=== PATIENT | male | born 1935 | race Caucasian/White ===

== ENCOUNTER 2017-11-08 22:38 | Observation (INO) ==
[2017-11-08 22:48] VITALS: BMI 37.3
--- NOTE | 2017-11-09 00:22 | DR.GENAD ---
HPI Time Seen Time Seen by Provider: 11/09/17 00:19 PCP Primary Care Physician: Jewel Complaint/Symptoms Chief Complaint Doctors Comments: Patient presents with complaint with dyspnea at night especially lying in bed. Has to sleep in sitting position. Can only walk a short distance before giving out of breath. He has a C-Pap machine at night. Chief Complaint:: Pt says, "I'm having trouble breathing sometime. Especially at night. I've had some tightness in my chest, but none on the moment. It's not like anyone is sitting on my chest, but it just feels like the air isn't going done into my lungs. Walking short distances leaves me winded. That just started about 4 days." Self Treatment fo Chief Complaint: Flonase Source History Provided: Patient Mode of Arrival Mode of Arrival: Ambulatory Timing Onset of Chief Complaint: 11/05/17 PMH PMH Past Medical History: Yes Past Medical History: Diabetes and Hypertension Past Surgical History: No Family History History of Family Medical Conditions: Yes Family Medical History: Cancer Social History Alcohol Use: None Do you use any recreational Drugs:: No Lives With: Alone Lives Where: Home infectious screening Have you traveled outside the country in the last 6 months?: No Isolation: Standard PE Vital Signs Vitals: Temperature 97.7 F Pulse Rate [Left Radial] 71 Pulse Rate 74 Respiratory Rate 18 Blood Pressure [Left Arm] 168/80 Blood Pressure 191/85 O2 Sat by Pulse Oximetry 97 General Limitations: No Limitations General Appearance: Alert and In No Apparent Distress Head Head Exam: Normal Inspection, Atraumatic and Normocephalic Eyes Eye exam: Normal Appearance, PERRL and EOMI ENT ENT Exam: Normal Exam and Normal Oropharynx External Ear Exam: Normal External Inspection TM/Canal Exam: Bilateral: Normal Nose Exam: Normal Nose Exam Mouth Exam: Normal Inspection Throat Exam: Normal Inspection Neck Neck Exam: Normal Inspection and Full ROM Chest Chest Inspection: Normal Inspection and Symmetric Chest Wall Rise Respiratory Respiratory Exam: Normal Lung Sounds Bilat Respiratory Exam: Bilateral: Clear to Auscultation Cardiovascular Cardiovascular Exam: Regular Rate, Normal Rhythm and Normal Heart Sounds Abdominal Exam Abdominal Exam: Normal Inspection, Normal Bowel Sounds, Soft and Distention Abdominal Tenderness: negative RUQ, RLQ, LUQ, LLQ, Epigastrium and Suprapubic Extremities Extremities Exam: Normal Inspection and Full ROM Back Back Exam: Normal Inspection and Full ROM Neurologic Neurological Exam: Alert, Oriented X3 and CN II-XII Intact Psychiatric Psychiatric Exam: Normal Affect and Normal Mood Skin Skin Exam: Warm, Dry, Intact and Normal Color COURSE Treatment Treatment: Chest CTA, negative Pulmonary Embolus Reevaluation 1st: Improved Consultation Called: 04:41 Consultation Comments: Patient admitted to floor ROR Labs Reviewed Laboratory Results Reviewed?: Yes Result Diagrams: 11/09/17 05:47 Laboratory: D-Dimer 595 ng/mL (0-400) H* 11/09/17 00:45 Sodium 141 mmol/L (136-145) 11/09/17 05:47 Corrected Sodium 142 mmol/L (136-145) 11/09/17 05:47 Potassium 3.9 mmol/L (3.5-5.1) 11/09/17 05:47 Chloride 102 mmol/L (98-107) 11/09/17 05:47 Carbon Dioxide 29.5 mmol/L (21-32) 11/09/17 05:47 BUN 13 mg/dL (7-18) 11/09/17 05:47 Creatinine 1.18 mg/dL (0.70-1.30) 11/09/17 05:47 Est GFR (MDRD) Af Amer > 60 (>60) 11/09/17 05:47 Est GFR (MDRD) Non-Af > 60 (>60) 11/09/17 05:47 Glucose 124 mg/dL (65-99) H 11/09/17 05:47 Calcium 8.1 mg/dL (8.5-10.1) L 11/09/17 05:47 Corrected Calcium TNP 11/09/17 05:47 Total Bilirubin 1.30 mg/dL (0.2-1.0) H 11/09/17 05:47 AST 33 Units/L (15-37) 11/09/17 05:47 ALT 43 Units/L (12-78) 11/09/17 05:47 Alkaline Phosphatase 66 Units/L (46-116) 11/09/17 05:47 Creatine Kinase 230 Units/L (39-308) 11/09/17 05:47 CK-MB (CK-2) 4.0 ng/mL (0-4.0) 11/09/17 05:47 CK/CKMB % Calc 1.7 % (<4) 11/09/17 05:47 Troponin I < 0.02 ng/mL (0-1.5) 11/09/17 05:47 Total Protein 7.6 g/dL (6.4-8.2) 11/09/17 05:47 Albumin 3.5 g/dL (3.4-5.0) 11/09/17 05:47 Globulin 4.1 g/dL (2.5-4.5) 11/09/17 05:47 Albumin/Globulin Ratio 0.9 Ratio (1.1-2.1) L 11/09/17 05:47 Other Results Comments: Elevated D Dimer: Chest CTA:No pulmonary embolus, Vascular plaque noted. Correlate clinically for cardiogenic chest pain. Gallstones are noted. Indeterminate left renal lesion noted. Nonemergent outpatient ultrasound left kidney follow-up recommended. XRAY XRAY Interpreted by: Radiologist XRAY Findings: Chest: No acute chest process Diagnosis Discharge Problem: Chest pain, Chest pain, rule out acute myocardial infarction, Exertional dyspnea
[2017-11-09 01:15] LABS: ALANINE AMINOTRANSFERASE 42 Units/L (12-78); ALBUMIN 3.4 g/dL (3.4-5.0); ALKALINE PHOSPHATASE 65 Units/L (46-116); ASPARTATE AMINO TRANSFERASE 34 Units/L (15-37); BLOOD UREA NITROGEN 13 mg/dL (7-18); CALCIUM 8.3 mg/dL (8.5-10.1); CHLORIDE 103 mmol/L (98-107); COR NA(FOR HYPERGLY) 143 mmol/L (136-145); SODIUM 142 mmol/L (136-145); TOTAL PROTEIN 7.5 g/dL (6.4-8.2); eGFR NON BLACK RACES > 60 (>60)
[2017-11-09 01:55] LABS: CKMB % 1.9 % (<4); CREATINE KINASE 249 Units/L (39-308); TROPONIN I < 0.02 ng/mL (0-1.5)
[2017-11-09 02:03] LABS: CREATINE KINASE MB 4.6 ng/mL (0-4.0)
--- NOTE | 2017-11-09 02:25 | RAD ---
Chest AP portable Indication: Dyspnea Findings: There is no pneumothorax or effusion. There is no consolidation. Monitoring leads obscure m inimal detail. Heart size is normal Impression: No acute chest process Reported By:
--- NOTE | 2017-11-09 03:39 | CT ---
CT angiogram chest after contrast Indication: Difficulty breathing. Borderline elevated D-dimer Technique: Helical images through the chest after IV contrast. Coronal and sagittal reformats provide d. MIP images provided. Findings: Limited images through the upper abdomen shows gallstones in the gallbladder. Vascular plaq ue noted. Right lobe hepatic cyst noted. Left renal hypodensity partially visualized most compatible with a cyst but is indeterminate. Vascular plaque is noted. Review of bone windows shows no destructive osseous lesion. Chest: The aortic arch and great vessels demonstrate scattered calcification. Heart size is prominent with coronary artery calcifications. Shotty mediastinal lymph nodes noted. Pulmonary artery bolus timing is adequate. No pulmonary artery filling defect identified. There is no pneumothorax or effusion. There is no consolidation. Impression: 1. No pulmonary embolus 2. Vascular plaque noted. Correlate clinically for cardiogenic chest pain 3. Gallstones are noted. Indeterminate left renal lesion noted. Nonemergent outpatient ultrasound lef t kidney follow-up recommended. Reported By:
[2017-11-09] MEDS ORDERED: CATAPRES TAB 0.2 MG PO ONE (04:15)
[2017-11-09] MEDS ORDERED: CATAPRES TAB 0.2 MG ONE (04:17)
[2017-11-09 06:37] LABS: CKMB % 1.7 % (<4); CREATINE KINASE 230 Units/L (39-308); TROPONIN I < 0.02 ng/mL (0-1.5)
[2017-11-09] MEDS ORDERED: INSULIN DETEMIR U SUBCUT SCH (06:45)
[2017-11-09] MEDS ORDERED: PATIENT'S HOME MEDICATION (Lisinopril-Hydrochlorothiazide [Lisinopril-Hydrochlorothiazide] PO SCH (07:00)
[2017-11-09] MEDS ORDERED: NS 1000 ML 1,000 ML IV SCH (07:00)
[2017-11-09] MEDS ORDERED: PATIENT'S HOME MEDICATION (Lovastatin [Lovastatin] 40 MG) PO SCH (07:00)
[2017-11-09 07:03] LABS: ALANINE AMINOTRANSFERASE 43 Units/L (12-78); ALBUMIN 3.5 g/dL (3.4-5.0); ALKALINE PHOSPHATASE 66 Units/L (46-116); ASPARTATE AMINO TRANSFERASE 33 Units/L (15-37); BLOOD UREA NITROGEN 13 mg/dL (7-18); CALCIUM 8.1 mg/dL (8.5-10.1); CARBON DIOXIDE 29.5 mmol/L (21-32); CHLORIDE 102 mmol/L (98-107); COR NA(FOR HYPERGLY) 142 mmol/L (136-145); CREATININE 1.18 mg/dL (0.70-1.30); SODIUM 141 mmol/L (136-145); TOTAL PROTEIN 7.6 g/dL (6.4-8.2); eGFR NON BLACK RACES > 60 (>60)
[2017-11-09] MEDS ORDERED: GLUCOPHAGE PO SCH (09:00)
[2017-11-09] MEDS ORDERED: GLIMEPIRIDE 1 MG PO SCH (09:00)
[2017-11-09] MEDS ORDERED: GLUCOPHAGE ONE (09:26)
[2017-11-09] MEDS ORDERED: ZESTRIL TAB 20 MG ONE (09:27)
[2017-11-09] MEDS: ZESTRIL TAB 20 MG PO SCH (09:30)
[2017-11-09] MEDS: FLOMAX PO SCH ×2 (09:31)
[2017-11-09] MEDS: HEMOCYTE-PLUS PO SCH ×2 (09:31→09:32)
[2017-11-09] MEDS: ASPIRIN EC 81 MG PO SCH ×2 (09:31)
[2017-11-09] MEDS: HYDROCHLOROTHIAZIDE 12.5 MG CAP PO SCH (09:32)
--- NOTE | 2017-11-09 12:20 | DR.H&P ---
H&P - History & Physical for Day of: H&P Date: 11/09/17 - Chief Complaint Chief Complaint: SOB, "INCREASED PRESSURE IN CHEST" - History of Present Illness History of Present Illness: 82WM ER ADMISSION AFTER PRESENTING WITH CO INCREASED SOB. PT HAS HXOF COPD, NON SMOKER, USES CPAP AT NIGHT. PT STATES HE FELT LIKE OXYGEN WAS NOT GETTING INTO HIS LUNGS AND HIS HEART WAS WORKING HARDER. PT DENIES ANY HX OF CAD. STATES POSSIBLE STRESS TEST IN 70'S. PT HAS MO , DM, HTN, COPD. PT HAD CTA OF CHEST IN ER NEGATIVE FOR PE. PT ADMITTED FOR SERIAL CE AND TREATMENT OF ACUTE SOB - Past Medical History Past Medical History: Hypertension, Diabetes Additional Medical History: DEJAH - Past Surgical History Surgical History: Other - Family History Family Medical History: Coronary Artery Disease, Hypertension - Social History Does patient currently use any type of tobacco product: No Have you used tobacco products in the last 12 months: No Type of Tobacco Use: Cigarettes How many years tobacco product used: 42 Does any household member use tobacco: No Alcohol Use: None Drug Use: None - Medications Home Medications: No Known Drug Allergies Allergy (Verified 10/16/17 07:56) - Review of Systems Constitutional: No Symptoms Reported Eyes: No Symptoms Reported ENT: No Symptoms Reported Respiratory: Shortness of Breath, SOB with Excertion Cardiovascular: Chest Pain, Edema Gastrointestinal: No Symptoms Reported Genitourinary: No Symptoms Reported Musculoskeletal: No Symptoms Reported Skin: No Symptoms Reported Neurological: No Symptoms Reported - Physical Exam Vital Signs: Temperature 97.8 F Pulse Rate [Left Radial] 73 Pulse Rate 74 Respiratory Rate 22 Blood Pressure [Left Arm] 143/69 Blood Pressure 191/85 O2 Sat by Pulse Oximetry 96 Oriented: Normal Eyes: Normal Ear: Normal Nose: Normal Throat: Normal Respiratory: RLL Diminished, LLL Diminished Cardiovascular: Normal, Edema : Normal Auscultation: Bowel Sounds: Normal Palpation: Normal Tenderness: Normal Skin: Normal Musculoskeletal: Normal Psychiatric: Normal Affect: Anxious Speech Pattern: Clear, Appropriate - Assessment/Plan (1) Chest pain Qualifiers: Chest pain type: chest pain on breathing Qualified Code(s): R07.1 - Chest pain on breathing; R07.81 - Pleurodynia Status: Acute Plan: ADMIT, SERIAL CE AND EKG. CTA CHEST ON ADMISSION. BP AND BP CONTROL. VERIFY HOME MEDS, CONTINUOUS SUPPLEMENTAL O2. ABG, AM FLP, ASPIRIN (2) Exertional dyspnea Status: Acute (3) Diabetes Status: Acute - Allergies Allergies/Adverse Reactions: Allergies Allergy/AdvReac Type Severity Reaction Status Date / Time No Known Drug Allergies Allergy Verified 10/16/17 07:56
[2017-11-09 12:54] LABS: ABG BASE EXCESS 4.7 mmol/L (-2.0-2.0); ABG HCO3 31.2 mmol/L (22-26); FRACTIONATED INSPIRED OXYGEN 28
[2017-11-09 12:54] LABS: BASOPHILS % (AUTO) 0.7 % (0.2-1.0); EOSINOPHILS # (AUTO) 0.2 x10^3/uL (0.0-0.2); EOSINOPHILS % (AUTO) 2.8 % (0.9-2.9); HEMATOCRIT 35.9 % (42.0-54.0); HEMOGLOBIN 11.9 g/dL (13.5-18.0); LYMPHOCYTES # (AUTO) 0.9 X10^3/uL (1.3-2.9); LYMPHOCYTES % (AUTO) 13.2 % (21.0-51.0); MEAN CORPUSCULAR HEMOGLOBIN 26.4 pg (27.0-34.0); MEAN CORPUSCULAR HGB CONC 33.2 g/dL (33.0-35.0); MEAN CORPUSCULAR VOLUME 79.6 fL (80.0-100.0); MEAN PLATELET VOLUME 8.1 fL (7.4-11.0); MONOCYTES # (AUTO) 0.6 x10^3/uL (0.3-0.8); MONOCYTES % (AUTO) 8.4 % (0.0-13.0); NEUTROPHILS # (AUTO) 5.1 x10^3/uL (2.2-4.8); NEUTROPHILS % (AUTO) 74.9 % (42.0-75.0); PLATELET COUNT 152 X10^3/uL (150.0-450.0); RED BLOOD COUNT 4.52 X10^6/uL (4.7-6.0); RED CELL DISTRIBUTION WIDTH 15.9 % (11.6-16.5); WHITE BLOOD COUNT 6.8 X10^3/uL (3.6-10.0)
[2017-11-09 12:55] LABS: ABG ALLEN TEST POS
[2017-11-09 13:34] LABS: CKMB % 1.9 % (<4); CREATINE KINASE 242 Units/L (39-308); TROPONIN I < 0.02 ng/mL (0-1.5)
[2017-11-09 13:42] LABS: CREATINE KINASE MB 4.5 ng/mL (0-4.0)
[2017-11-09] MEDS: NS 1000 ML 1,000 ML IV SCH (16:36)
[2017-11-09 20:02] LABS: CKMB % 1.7 % (<4); CREATINE KINASE 253 Units/L (39-308); TROPONIN I < 0.02 ng/mL (0-1.5)
[2017-11-09 20:08] LABS: CREATINE KINASE MB 4.4 ng/mL (0-4.0)
[2017-11-09] MEDS: LIPITOR TAB 10 MG PO SCH (20:19)
[2017-11-09] MEDS ORDERED: LEVEMIR SC SCH (21:00)
[2017-11-09] MEDS: MORPHINE SULFATE INJ 4 MG IVP PRN (22:11)
[2017-11-10] MEDS: NS 1000 ML 1,000 ML IV SCH ×2 (02:01→18:37)
[2017-11-10] MEDS: MORPHINE SULFATE INJ 4 MG IVP PRN ×3 (02:02→22:28)
[2017-11-10 05:05] LABS: BASOPHILS # (AUTO) 0.1 X10^3/uL (0.0-0.1); BASOPHILS % (AUTO) 0.7 % (0.2-1.0); EOSINOPHILS # (AUTO) 0.3 x10^3/uL (0.0-0.2); EOSINOPHILS % (AUTO) 3.7 % (0.9-2.9); HEMATOCRIT 37.7 % (42.0-54.0); HEMOGLOBIN 12.2 g/dL (13.5-18.0); LYMPHOCYTES # (AUTO) 2.2 X10^3/uL (1.3-2.9); LYMPHOCYTES % (AUTO) 23.3 % (21.0-51.0); MEAN CORPUSCULAR HEMOGLOBIN 26.2 pg (27.0-34.0); MEAN CORPUSCULAR HGB CONC 32.3 g/dL (33.0-35.0); MEAN PLATELET VOLUME 8.5 fL (7.4-11.0); MONOCYTES # (AUTO) 0.9 x10^3/uL (0.3-0.8); MONOCYTES % (AUTO) 9.5 % (0.0-13.0); NEUTROPHILS # (AUTO) 5.8 x10^3/uL (2.2-4.8); NEUTROPHILS % (AUTO) 62.8 % (42.0-75.0); PLATELET COUNT 165 X10^3/uL (150.0-450.0); RED BLOOD COUNT 4.66 X10^6/uL (4.7-6.0); RED CELL DISTRIBUTION WIDTH 15.7 % (11.6-16.5); WHITE BLOOD COUNT 9.2 X10^3/uL (3.6-10.0)
[2017-11-10 05:14] LABS: ALANINE AMINOTRANSFERASE 43 Units/L (12-78); ALBUMIN 3.5 g/dL (3.4-5.0); ALKALINE PHOSPHATASE 68 Units/L (46-116); ASPARTATE AMINO TRANSFERASE 35 Units/L (15-37); BLOOD UREA NITROGEN 13 mg/dL (7-18); CARBON DIOXIDE 32.1 mmol/L (21-32); CHLORIDE 101 mmol/L (98-107); COR NA(FOR HYPERGLY) 141 mmol/L (136-145); CREATININE 1.16 mg/dL (0.70-1.30); SODIUM 140 mmol/L (136-145); TOTAL PROTEIN 7.6 g/dL (6.4-8.2); eGFR NON BLACK RACES > 60 (>60)
[2017-11-10] MEDS: ZOFRAN INJ 4 MG VIAL IVP PRN ×2 (05:46→22:29)
[2017-11-10] MEDS ORDERED: AMARYL TAB 4 MG PO SCH (07:00)
[2017-11-10] MEDS ORDERED: ZESTRIL TAB 20 MG ONE (07:44)
[2017-11-10] MEDS: FLOMAX PO SCH (08:51)
[2017-11-10] MEDS: ZESTRIL TAB 20 MG PO SCH (08:51)
[2017-11-10] MEDS: ASPIRIN EC 81 MG PO SCH (08:51)
[2017-11-10] MEDS: HEMOCYTE-PLUS PO SCH (08:51)
[2017-11-10] MEDS: HYDROCHLOROTHIAZIDE 12.5 MG CAP PO SCH (08:51)
[2017-11-10 09:59] LABS: CKMB % 1.5 % (<4); CREATINE KINASE 234 Units/L (39-308); CREATINE KINASE MB 3.6 ng/mL (0-4.0); TROPONIN I < 0.02 ng/mL (0-1.5)
[2017-11-10 13:48] LABS: CKMB % 1.5 % (<4); CREATINE KINASE 209 Units/L (39-308); CREATINE KINASE MB 3.2 ng/mL (0-4.0); TROPONIN I < 0.02 ng/mL (0-1.5)
[2017-11-10 18:47] LABS: CKMB % 1.4 % (<4); CREATINE KINASE 222 Units/L (39-308); CREATINE KINASE MB 3.2 ng/mL (0-4.0); TROPONIN I < 0.02 ng/mL (0-1.5)
[2017-11-10] MEDS: LIPITOR TAB 10 MG PO SCH (20:31)
[2017-11-10 20:43] VITALS: BP 158/70
--- NOTE | 2017-12-17 01:04 | DR.CARTERD ---
- Discharge Summary for: Discharge Summary for Date of:: 11/10/17 - Admission Date Date of Admission: 11/09/17 - Admission Diagnoses Admission Diagnosis: (1) Chest pain (2) Exertional dyspnea (3) Diabetes - Discharge Date Discharge Date: 11/10/17 - Discharge Diagnoses Discharge Diagnosis: (1) Chest pain (2) Exertional dyspnea (3) Diabetes - Hospital Course Hospital Course: Mr. Cadena presented to the [facility] emergency room with complaints of dyspnea at night especially lying in bed. He reported he had to sleep in sitting position. He could only walk a short distance before giving out of breath. He reported, "I'm having trouble breathing sometimes. Especially at night. I've had some tightness in my chest, but none at the moment. It's not like anyone is sitting on my chest, but it just feels like the air isn't going down into my lungs. Walking short distances leaves me winded. This just started about 4 days." Patient had a history of COPD, he was a non-smoker, and used a CPAP at night. Chest x-ray revealed no acute chest process. EKG showed a sinus rhythm with a heart rate of 71. A chest CTA was performed and revealed: No pulmonary embolus. Vascular plaque noted. Correlate clinically for cardiogenic chest pain. Gallstones were noted. Indeterminate left renal lesion noted. Nonemergent outpatient ultrasound left kidney follow-up recommended. Patient was admitted to the hospital for chest pain R/O AR. 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 Medical HX: HTN, COPD, GERD, DM II, Skin CA, Vasectomy. Medications: NS 1000 MLS IV @ 75 MLS/HR, NS 1000 MLS IV @ 30 MLS/HR, Morphine 4 MG IVP Q4H PRN, Saline Flush 10 MLS IVP TID, Levemir 24 units SC @ HS, OTBS AC&HS, Metformin 500 MG PO BID, Glimerpiride 1MG PO Daily, Lovastatin 40 MG PO Daily, Clonodine 0.2 MG PO once, Lipitor 10 MG PO @ HS, Lisinopril 20 MG PO Daily, Hydrochlorothiazide 12.5 MG PO Daily, Flomax 0.4 MG PO Daily, Hemocyte Plus 1 TAB PO Daily, Aspirin 81 MG PO Daily. On day two, patient refused to stay and requested to leave against medical advice. Cardiac enzymes and EKGs were normal. Patient signed out and left hospital with son in stable condition. - Discharge Medications Discharge Medications: Prescriptions: Ambulatory Orders aspirin 81 mg PO QDAY 10/16/17 coQ10 (ubiquinol) 200 mg PO QDAY 10/16/17 glimepiride 1 mg PO QAM 10/16/17 insulin detemir U-100 [Levemir FlexTouch U-100 Insuln] 30 unit SUBCUT QHS 10/16/17 iron-folic acid-mv, min cmb#15 [Hemocyte-Plus] 1 cap PO QDAY 10/16/17 lisinopril-hydrochlorothiazide 1 tab PO QDAY 10/16/17 lovastatin 40 mg PO QDAY 10/16/17 metformin 500 mg PO BID 10/16/17 tamsulosin 0.4 mg PO QDAY 10/16/17 - Discharge Disposition Discharge Disposition: Patient is to follow up in our office in three days.
== END 2017-11-10 23:10 | disposition left against medical advice (07) ==
LOC: MED/SURG 22:38 → ER 22:38 → MED/SURG 11-09 07:47
PROVIDERS: ADMIT Internal Medicine; ATTEND Internal Medicine
DX: Z79.899 Other long term (current) drug therapy; R07.81 Pleurodynia; J44.9 Chronic obstructive pulmonary disease, unspecified; R94.31 Abnormal electrocardiogram [ECG] [EKG]; I10 Essential (primary) hypertension; R07.1 Chest pain on breathing; R06.02 Shortness of breath; E11.65 Type 2 diabetes mellitus with hyperglycemia
CPT/HCPCS: 36415; 36600; 71010; 71045; 71275; 80053; 82550; 82553; 82803; 83036; 84484; 85025; 85378; 93005; 93010; 93306; 96365; 99218; 99284; A4216; A4222; G0378; J2270; J2405; J7030

== ENCOUNTER 2023-06-05 10:24 | Inpatient (IN) ==
[2023-06-05] MEDS ORDERED: ZOFRAN INJ 4 MG VIAL IVP PRN (12:52)
[2023-06-05] MEDS: VSL#3 PROBIOTIC CAP 112.5 B PO SCH (13:44)
[2023-06-05] MEDS: PROTONIX INJ 40 MG VIAL IVP SCH (13:44)
[2023-06-05] MEDS: NS 1,000 ML IV 1,000 ML IV SCH (13:44)
[2023-06-05] MEDS: ZITHROMAX INJ 500 MG VIAL 500 MG in NS 250 ML IV 250 ML IV SCH (13:44)
[2023-06-05] MEDS: VANCOMYCIN HCL 250 MG CAP PO SCH (13:44)
[2023-06-05 13:53] LABS: BASOPHILS # (AUTO) 0.1 X10^3/uL (0.0-0.1); BASOPHILS % (AUTO) 0.5 % (0.2-1.0); EOSINOPHILS # (AUTO) 0.1 x10^3/uL (0.0-0.2); EOSINOPHILS % (AUTO) 1.1 % (0.9-2.9); HEMATOCRIT 24.4 % (42.0-54.0); HEMOGLOBIN 7.8 g/dL (13.5-18.0); LYMPHOCYTES # (AUTO) 0.8 X10^3/uL (1.3-2.9); LYMPHOCYTES % (AUTO) 7.4 % (21.0-51.0); MEAN CORPUSCULAR HEMOGLOBIN 25.5 pg (27.0-34.0); MEAN CORPUSCULAR HGB CONC 32.1 g/dL (33.0-35.0); MEAN CORPUSCULAR VOLUME 79.7 fL (80.0-100.0); MONOCYTES # (AUTO) 1.7 x10^3/uL (0.3-0.8); MONOCYTES % (AUTO) 15.3 % (0.0-13.0); NEUTROPHILS # (AUTO) 8.6 x10^3/uL (2.2-4.8); NEUTROPHILS % (AUTO) 75.7 % (42.0-75.0); PLATELET COUNT 156 X10^3/uL (150.0-450.0); RED BLOOD COUNT 3.06 X10^6/uL (4.7-6.0); RED CELL DISTRIBUTION WIDTH 17.4 % (11.6-16.5); WHITE BLOOD COUNT 11.4 X10^3/uL (3.6-10.0)
[2023-06-05 14:04] LABS: ALANINE AMINOTRANSFERASE 10 Units/L (12-78); ALBUMIN 1.8 g/dL (3.4-5.0); ALKALINE PHOSPHATASE 57 Units/L (46-116); ASPARTATE AMINO TRANSFERASE 11 Units/L (15-37); BLOOD UREA NITROGEN 64 mg/dL (7-18); CALCIUM 6.4 mg/dL (8.5-10.1); CARBON DIOXIDE 18.1 mmol/L (21-32); CHLORIDE 109 mmol/L (98-107); COR CA(FOR HYPOALB) 8.2 mg/dL (8.5-10.1); CREATININE 3.75 mg/dL (0.70-1.30); GLUCOSE 103 mg/dL (65-99); POTASSIUM 4.2 mmol/L (3.5-5.1); SODIUM 140 mmol/L (136-145); TOTAL PROTEIN 5.3 g/dL (6.4-8.2); eGFR NON BLACK RACES 16 (>60)
[2023-06-05 15:07] VITALS: BMI 33.4
[2023-06-05] MEDS: NS 1,000 ML IV 1,000 ML IV ONE (15:18)
[2023-06-05] MEDS: FLOMAX PO SCH (20:57)
[2023-06-05] MEDS: CRESTOR TAB 10 MG PO SCH (20:57)
[2023-06-05] MEDS ORDERED: PATIENT'S HOME MEDICATION (Rosuvastatin 20 mg tablet) PO SCH (21:00)
--- NOTE | 2023-06-05 21:49 | DR.H&P ---
H&P History & Physical for Day of: H&P Date: 06/05/23 Chief Complaint Chief Complaint: abdominal pain, diarrhea, weakness Allergies Allergies Allergy/AdvReac Type Severity Reaction Status Date / Time No Known Drug Allergies Allergy Verified 10/16/17 07:56 History of Present Illness History of Present Illness: Mr Cadena is a 87y/o male who was directly admitted from Dr Holloway's office due to abdominal pain, diarrhea and weakness. He was seen outpatient and tested positive for C diff and campy. He was started on Ciprofloxacin and Flagyl. He was seen again the following day and labs showed worsening renal function. He received 2L IVF in the office. He continued to feel worse so was admitted for further management. He is complaining of generalized abdominal pain, diarrhea and weakness. He states his symptoms have been present for over a week. He denies any blood in the stool. He reports being on antibiotics for the past month for other reasons. He was not tolerating PO intake. Denies fever or chills. Labs/imaging reviewed: -WBC: 11.4 Hgb 7.4 BUN/Cr: 64/3.75 Plan: Order stat cbc, cmp, ua. Will order CTAP. Start hydration, anti-emetics, PO vancomycin and azithromycin. Add pantoprazole and probiotics. Give 1 L NS now. Resume home medications. Start full liquid diet, advance as tolerated. Replace electrolytes as per protocol. Monitor AM labs/imaging. Past Medical History Past Medical History: COPD, Diabetes, Dyslipidemia, GERD, Hypertension and Sleep Apnea Additional Medical History: DEJAH Past Surgical History Surgical History: Other Family History Family Medical History: Cancer, Coronary Artery Disease and Hypertension Social History Does patient currently use any type of tobacco product: No Type of Tobacco Use: None Does any household member use tobacco: No Alcohol Use: None Drug Use: None Medications Home Medications: Home Medications Medication Instructions Recorded Confirmed Type lisinopril 20 1 tab PO QDAY 10/16/17 06/05/23 History mg-hydrochlorothiazide 12.5 mg tablet aspirin 325 mg tablet,delayed 325 mg PO QDAY 02/14/23 06/05/23 History release pantoprazole 40 mg tablet,delayed 40 mg PO QDAY 02/14/23 06/05/23 History release rosuvastatin 20 mg tablet 20 mg PO QPM 02/14/23 06/05/23 History tamsulosin 0.4 mg capsule 0.4 mg PO QPM 05/31/23 06/05/23 History Lactobacillus rhamnosus GG 10 1 cap PO DAILY 06/05/23 06/05/23 History billion cell-inulin 200 mg capsule ([facility]) Labs 06/05/23 13:36 06/05/23 13:36 Labs: Laboratory WBC 11.4 X10^3/uL (3.6-10.0) H 06/05/23 13:36 RBC 3.06 X10^6/uL (4.7-6.0) L 06/05/23 13:36 Hgb 7.8 g/dL (13.5-18.0) L 06/05/23 13:36 Hct 24.4 % (42.0-54.0) L 06/05/23 13:36 MCV 79.7 fL (80.0-100.0) L 06/05/23 13:36 MCH 25.5 pg (27.0-34.0) L 06/05/23 13:36 MCHC 32.1 g/dL (33.0-35.0) L 06/05/23 13:36 RDW 17.4 % (11.6-16.5) H 06/05/23 13:36 Plt Count 156 X10^3/uL (150.0-450.0) 06/05/23 13:36 MPV 8.0 fL (7.4-11.0) 06/05/23 13:36 Neut % (Auto) 75.7 % (42.0-75.0) H 06/05/23 13:36 Lymph % (Auto) 7.4 % (21.0-51.0) L 06/05/23 13:36 [place] % (Auto) 15.3 % (0.0-13.0) H 06/05/23 13:36 Eos % (Auto) 1.1 % (0.9-2.9) 06/05/23 13:36 Baso % (Auto) 0.5 % (0.2-1.0) 06/05/23 13:36 Neut # (Auto) 8.6 x10^3/uL (2.2-4.8) H 06/05/23 13:36 Lymph # (Auto) 0.8 X10^3/uL (1.3-2.9) L 06/05/23 13:36 [place] # (Auto) 1.7 x10^3/uL (0.3-0.8) H 06/05/23 13:36 Eos # (Auto) 0.1 x10^3/uL (0.0-0.2) 06/05/23 13:36 Baso # (Auto) 0.1 X10^3/uL (0.0-0.1) 06/05/23 13:36 Absolute Nucleated RBC 0.0 /100WBC 06/05/23 13:36 Sodium 140 mmol/L (136-145) 06/05/23 13:36 Corrected Sodium TNP 06/05/23 13:36 Potassium 4.2 mmol/L (3.5-5.1) 06/05/23 13:36 Chloride 109 mmol/L (98-107) H 06/05/23 13:36 Carbon Dioxide 18.1 mmol/L (21-32) L 06/05/23 13:36 BUN 64 mg/dL (7-18) H 06/05/23 13:36 Creatinine 3.75 mg/dL (0.70-1.30) H 06/05/23 13:36 Est GFR (MDRD) Af Amer 20 (>60) L 06/05/23 13:36 Est GFR (MDRD) Non-Af 16 (>60) L 06/05/23 13:36 Glucose 103 mg/dL (65-99) H 06/05/23 13:36 Calcium 6.4 mg/dL (8.5-10.1) L 06/05/23 13:36 Corrected Calcium 8.2 mg/dL (8.5-10.1) L 06/05/23 13:36 Total Bilirubin 0.40 mg/dL (0.2-1.0) 06/05/23 13:36 AST 11 Units/L (15-37) L 06/05/23 13:36 ALT 10 Units/L (12-78) L 06/05/23 13:36 Alkaline Phosphatase 57 Units/L (46-116) 06/05/23 13:36 Total Protein 5.3 g/dL (6.4-8.2) L 06/05/23 13:36 Albumin 1.8 g/dL (3.4-5.0) L 06/05/23 13:36 Globulin 3.5 g/dL (2.5-4.5) 06/05/23 13:36 Albumin/Globulin Ratio 0.5 Ratio (1.1-2.1) L 06/05/23 13:36 Review of Systems Constitutional: Weakness and Malaise Eyes: No Symptoms Reported Respiratory: No Symptoms Reported Cardiovascular: No Symptoms Reported Gastrointestinal: Abdominal Pain and Diarrhea Genitourinary: No Symptoms Reported Musculoskeletal: No Symptoms Reported Skin: No Symptoms Reported Neurological: No Symptoms Reported Physical Exam Vital Signs: Vital Signs Temperature 98.4 F Temperature 97.1 F Pulse Rate [Left Brachial] 90 Pulse Rate [Left Brachial] 83 Respiratory Rate 19 Respiratory Rate 18 Blood Pressure [Left Arm] 171/77 Blood Pressure [Left Arm] 151/66 O2 Sat by Pulse Oximetry 97 O2 Sat by Pulse Oximetry 98 Oriented: Normal Eyes: Normal Nose: Normal Throat: Normal Respiratory: Clear Throughout Cardiovascular: Normal Auscultation: Bowel Sounds: Normal Tenderness: Diffuse and Mild Skin: Decreased [place] Musculoskeletal: Normal Psychiatric: Normal Mood Description: Calm Affect: Normal Speech Pattern: Clear and Appropriate Assessment/Plan (1) C. difficile colitis: Status: Acute (2) Campylobacter diarrhea: Status: Acute (3) JAKE (acute kidney injury): Status: Acute (4) Acute dehydration: Status: Acute (5) Generalized weakness: Status: Acute (6) Anemia: Qualifiers: Anemia type: unspecified type Qualified Code(s): D64.9 - Anemia, unspecified Status: Acute Review H&P Reviewed: Yes Patient was examined?: Yes
[2023-06-05 23:08] LABS: BILIRUBIN,URINE NEGATIVE (NEGATIVE); BLOOD/HEMOGLOBIN,URINE 1+ (NEGATIVE); GLUCOSE, URINE NEGATIVE (NEGATIVE); KETONES,URINE NEGATIVE (NEGATIVE); LEUKOCYTE ESTERASE ,URINE 1+ (NEGATIVE); NITRITES,URINE POSITIVE (NEGATIVE); PROTEIN,URINE 3+ (NEGATIVE); UROBILINOGEN,URINE NORMAL (NORMAL)
[2023-06-05 23:22] LABS: APPEARANCE,URINE SLIGHTLY HAZY (CLEAR); BACTERIA,URINE 2+ /HPF (NEGATIVE); COLOR,URINE YELLOW (YELLOW); GRANULAR CASTS,URINE FEW /LPF (NEGATIVE); SQUAMOUS EPITHELIAL CELL,UR FEW /HPF (NEGATIVE)
[2023-06-06 06:15] LABS: BASOPHILS % (AUTO) 0.3 % (0.2-1.0); EOSINOPHILS # (AUTO) 0.2 x10^3/uL (0.0-0.2); EOSINOPHILS % (AUTO) 1.8 % (0.9-2.9); HEMATOCRIT 25.4 % (42.0-54.0); LYMPHOCYTES # (AUTO) 0.9 X10^3/uL (1.3-2.9); LYMPHOCYTES % (AUTO) 7.2 % (21.0-51.0); MEAN CORPUSCULAR HEMOGLOBIN 25.3 pg (27.0-34.0); MEAN CORPUSCULAR HGB CONC 31.6 g/dL (33.0-35.0); MEAN CORPUSCULAR VOLUME 80.3 fL (80.0-100.0); MEAN PLATELET VOLUME 8.2 fL (7.4-11.0); MONOCYTES # (AUTO) 1.8 x10^3/uL (0.3-0.8); MONOCYTES % (AUTO) 13.9 % (0.0-13.0); NEUTROPHILS # (AUTO) 9.9 x10^3/uL (2.2-4.8); NEUTROPHILS % (AUTO) 76.8 % (42.0-75.0); PLATELET COUNT 184 X10^3/uL (150.0-450.0); RED BLOOD COUNT 3.17 X10^6/uL (4.7-6.0); RED CELL DISTRIBUTION WIDTH 17.5 % (11.6-16.5); WHITE BLOOD COUNT 12.9 X10^3/uL (3.6-10.0)
[2023-06-06 06:26] LABS: ALBUMIN 1.8 g/dL (3.4-5.0); CALCIUM 6.4 mg/dL (8.5-10.1); CARBON DIOXIDE 18.1 mmol/L (21-32); COR CA(FOR HYPOALB) 8.2 mg/dL (8.5-10.1); CREATININE 3.85 mg/dL (0.70-1.30); MAGNESIUM 1.1 mg/dL (2.0-2.9); POTASSIUM 4.6 mmol/L (3.5-5.1); TOTAL PROTEIN 5.5 g/dL (6.4-8.2)
[2023-06-06] MEDS ORDERED: NS 1,000 ML IV 1,000 ML IV SCH (09:00)
[2023-06-06] MEDS: PROTONIX TAB 40 MG PO SCH (09:11)
[2023-06-06] MEDS: ECOTRIN TAB 325 MG PO SCH (09:12)
[2023-06-06] MEDS: NS 1,000 ML IV 1,000 ML with MAGNESIUM SULFATE 50% INJ VIAL 2 G IV SCH (09:39)
[2023-06-06] MEDS: ZITHROMAX TAB 250 MG PO SCH (10:10)
[2023-06-06] MEDS: ROCEPHIN VIAL 1 GRAM 1 G in NS 100 ML IV 100 ML IV SCH (10:14)
[2023-06-06] MEDS ORDERED: NovoLIN R (or HumuLIN R) SUBCUT PRN (10:37)
--- NOTE | 2023-06-06 13:34 | CT ---
EXAM:CT abdomen pelvis with IV contrastHISTORY:ABD PAIN, C DIFF; DM, HTN -COMPARISON:CT 02/14/2023.TECHNIQUE:Multiple axial images of the abdomen and pelvis were obtained from the lung bases to the pubic symphysis without the administration of IV contrast. Dose reduction techniques including Automated Exposure Control (AEC) and adjustment of mA and kV were utilized.FINDINGS:The visualized portions of the lung bases mild pleural effusions have developed, [id number]. Likely mild associated atelectasis is seen in the right lung base but this area is not fully included. Consider evaluation with CT of the chest. There is a small pericardial effusion that is slightly larger than on prior study. Heart is normal in size.In the superior aspect of the liver there is a well-circumscribed low-density lesion measuring 2.4 cm, unchanged from prior study. It is probably a cyst. Spleen appears normal.Gallbladder is filled with stones. It is poorly distended but no suggestion of wall thickening or pericholecystic fluid is seen. No biliary ductal dilation.No pancreatic abnormality is seen.The adrenal glands appear normal.Isodense exophytic lesion in the mid left kidney measures 3.6 cm in greatest axial dimension, similar to prior study. It is probably a cyst. A parapelvic cyst in the mid right kidney is similar to prior study measuring 2.1 cm. Vascular calcifications are seen in the left hilum. Ureters and bladder appear normal.There appears to be wall thickening in portions of the ascending, transverse, descending, and sigmoid colon. Adjacent hazy inflammation is seen that is new since prior study. Findings suggest possible infectious colitis such as C difficile. There are few diverticula in the descending colon and sigmoid colon but diverticulitis is not thought to be likely. Small bowel dilation is seen. Normal appendix is seen.There is mild prostatomegaly. Prostate gland measures 5.4 x 5.7 x 5.0 cm, similar to prior study. There are bilateral inguinal hernias containing fat. Similar to prior study.Abdominal aorta is normal in size.No suspicious lymphadenopathy.Trace free fluid is seen in the pericolic gutters. No free intraperitoneal air is seen.No acute bony abnormality is seen. Disc bulge is seen at L4-5, similar to prior study.IMPRESSION:Probable changes of infectious colitis are present, new since prior study.Persistent prostatomegaly.Probable benign hepatic and renal cysts are similar to prior study.New small pleural effusions are seen with slight increase in size of small pericardial effusion. Probable atelectasis is seen in the right lung base but is only partially included. Suggest further evaluation with chest CT to ensure no pneumonia or mass.THIS IS AN ELECTRONICALLY VERIFIED FINAL REPORT06/06/2023 1:31 PM - Electronically signed by Demetrio Rubin MD
--- NOTE | 2023-06-06 19:17 | PCM.PROG ---
Progress Note Progress Note for Day of Date of Exam: 06/06/23 Subjective Subjective: Pt is a 87 y/o male admitted for C diff and campy gastroenteritis, acute cystitis, and acute renal failure. He is currently receiving IV antibiotics: Ciprofloxacin and Flagyl. This morning he is sitting up in bed. No acute events overnight. Labs/imaging reviewed: -WBC 12.9, hemoglobin 8, platelets 184, sodium 139, potassium 4.6, creatinine 3.85, glucose 142 -Urine/blood cultures pending Plan: CT abdomen and pelvis has been ordered, results pending. Follow-up results. Continue IV fluids, anti-emetics, PO vancomycin and azithromycin, pantoprazole and probiotics. Will add Rocephin for gram-negative coverage. Home medications have been restarted. Patient is on full liquid diet, advance as tolerated. Replace electrolytes as per protocol. Monitor AM labs/imaging. Past Medical Family Social History Allergies: Allergies No Known Drug Allergies Allergy (Verified 10/16/17 07:56) Review of Systems ROS changes noted: see HPI Vital Signs and I&O's Vital Signs: Vital Signs Temperature 97.0 F Temperature 98.0 F Pulse Rate [Left Brachial] 88 Pulse Rate [Left Brachial] 90 Respiratory Rate 18 Respiratory Rate 18 Blood Pressure [Left Arm] 146/65 Blood Pressure [Left Arm] 142/62 O2 Sat by Pulse Oximetry 94 O2 Sat by Pulse Oximetry 99 Intake and Output: Intake & Output 06/03/23 06/04/23 06/05/23 06/06/23 23:59 23:59 23:59 23:59 Intake Total 2011 3245 / 3245 Output Total 320 / 320 420 / 420 Balance 1692 / 1692 2825 / 2825 Physical Exam Oriented: Normal Eyes: Normal Nose: Normal Throat: Normal Respiratory: Normal Cardiovascular: Normal Auscultation: Bowel Sounds: Normal Tenderness: Diffuse and Mild Skin: Decreased Turgur Musculoskeletal: Normal Psychiatric: Normal Mood Description: Calm Affect: Normal Speech Pattern: Clear and Appropriate Laboratory and Diagnostics 06/06/23 05:35 06/06/23 05:35 Labs: Laboratory WBC 12.9 X10^3/uL (3.6-10.0) H 06/06/23 05:35 RBC 3.17 X10^6/uL (4.7-6.0) L 06/06/23 05:35 Hgb 8.0 g/dL (13.5-18.0) L 06/06/23 05:35 Hct 25.4 % (42.0-54.0) L 06/06/23 05:35 MCV 80.3 fL (80.0-100.0) 06/06/23 05:35 MCH 25.3 pg (27.0-34.0) L 06/06/23 05:35 MCHC 31.6 g/dL (33.0-35.0) L 06/06/23 05:35 RDW 17.5 % (11.6-16.5) H 06/06/23 05:35 Plt Count 184 X10^3/uL (150.0-450.0) 06/06/23 05:35 MPV 8.2 fL (7.4-11.0) 06/06/23 05:35 Neut % (Auto) 76.8 % (42.0-75.0) H 06/06/23 05:35 Lymph % (Auto) 7.2 % (21.0-51.0) L 06/06/23 05:35 [place] % (Auto) 13.9 % (0.0-13.0) H 06/06/23 05:35 Eos % (Auto) 1.8 % (0.9-2.9) 06/06/23 05:35 Baso % (Auto) 0.3 % (0.2-1.0) 06/06/23 05:35 Neut # (Auto) 9.9 x10^3/uL (2.2-4.8) H 06/06/23 05:35 Lymph # (Auto) 0.9 X10^3/uL (1.3-2.9) L 06/06/23 05:35 [place] # (Auto) 1.8 x10^3/uL (0.3-0.8) H 06/06/23 05:35 Eos # (Auto) 0.2 x10^3/uL (0.0-0.2) 06/06/23 05:35 Baso # (Auto) 0.0 X10^3/uL (0.0-0.1) 06/06/23 05:35 Absolute Nucleated RBC 0.0 /100WBC 06/06/23 05:35 Sodium 139 mmol/L (136-145) 06/06/23 05:35 Corrected Sodium 140 mmol/L (136-145) 06/06/23 05:35 Potassium 4.6 mmol/L (3.5-5.1) 06/06/23 05:35 Chloride 107 mmol/L (98-107) 06/06/23 05:35 Carbon Dioxide 18.1 mmol/L (21-32) L 06/06/23 05:35 BUN 58 mg/dL (7-18) H 06/06/23 05:35 Creatinine 3.85 mg/dL (0.70-1.30) H 06/06/23 05:35 Est GFR (MDRD) Af Amer 19 (>60) L 06/06/23 05:35 Est GFR (MDRD) Non-Af 16 (>60) L 06/06/23 05:35 Glucose 142 mg/dL (65-99) H 06/06/23 05:35 POC Glucose (mg/dL) 137 mg/dL (65-99) H 06/06/23 16:09 Calcium 6.4 mg/dL (8.5-10.1) L 06/06/23 05:35 Corrected Calcium 8.2 mg/dL (8.5-10.1) L 06/06/23 05:35 Magnesium 1.1 mg/dL (2.0-2.9) L 06/06/23 05:35 Total Bilirubin 0.30 mg/dL (0.2-1.0) 06/06/23 05:35 AST 14 Units/L (15-37) L 06/06/23 05:35 ALT 11 Units/L (12-78) L 06/06/23 05:35 Alkaline Phosphatase 63 Units/L (46-116) 06/06/23 05:35 Total Protein 5.5 g/dL (6.4-8.2) L 06/06/23 05:35 Albumin 1.8 g/dL (3.4-5.0) L 06/06/23 05:35 Globulin 3.7 g/dL (2.5-4.5) 06/06/23 05:35 Albumin/Globulin Ratio 0.5 Ratio (1.1-2.1) L 06/06/23 05:35 Specimen Type Clean catch urine 06/05/23 22:40 Urine Color Yellow (YELLOW) 06/05/23 22:40 Urine Appearance Slightly hazy (CLEAR) 06/05/23 22:40 Urine pH 5.0 (5.0 - 8.0) 06/05/23 22:40 Ur Specific [place] 1.020 (1.000-1.030) 06/05/23 22:40 Urine Protein 3+ (NEGATIVE) 06/05/23 22:40 Urine Glucose (UA) Negative (NEGATIVE) 06/05/23 22:40 Urine Ketones Negative (NEGATIVE) 06/05/23 22:40 Urine Blood 1+ (NEGATIVE) 06/05/23 22:40 Urine Nitrite Positive (NEGATIVE) 06/05/23 22:40 Urine Bilirubin Negative (NEGATIVE) 06/05/23 22:40 Urine Urobilinogen Normal (NORMAL) 06/05/23 22:40 Ur Leukocyte Esterase 1+ (NEGATIVE) 06/05/23 22:40 Urine RBC 3-5 /HPF (0-3) A 06/05/23 22:40 Urine WBC Tntc /HPF (0-5) A 06/05/23 22:40 Ur Squamous Epith Cells Few /HPF (NEGATIVE) 06/05/23 22:40 Urine Bacteria 2+ /HPF (NEGATIVE) 06/05/23 22:40 Granular Casts Few /LPF (NEGATIVE) 06/05/23 22:40 Urine Mucus Few /HPF (NEGATIVE) 06/05/23 22:40 Ur Culture Indicated? Yes/culture set up 06/05/23 22:40 Plan (1) C. difficile colitis: Status: Acute (2) Campylobacter diarrhea: Status: Acute (3) JAKE (acute kidney injury): Status: Acute (4) Acute dehydration: Status: Acute (5) Generalized weakness: Status: Acute (6) Anemia: Status: Acute Qualifiers: Anemia type: unspecified type Qualified Code(s): D64.9 - Anemia, unspecified
[2023-06-06] MEDS: SNACK - Diabetic Appropriate PO SCH (21:11)
[2023-06-07 06:34] LABS: BASOPHILS # (AUTO) 0.1 X10^3/uL (0.0-0.1); BASOPHILS % (AUTO) 0.5 % (0.2-1.0); EOSINOPHILS # (AUTO) 0.4 x10^3/uL (0.0-0.2); HEMOGLOBIN 7.6 g/dL (13.5-18.0); MEAN PLATELET VOLUME 8.2 fL (7.4-11.0); MONOCYTES # (AUTO) 1.7 x10^3/uL (0.3-0.8); NEUTROPHILS # (AUTO) 7.5 x10^3/uL (2.2-4.8)
[2023-06-07 06:42] LABS: EOSINOPHILS % (AUTO) 3.8 % (0.9-2.9); HEMATOCRIT 23.6 % (42.0-54.0); LYMPHOCYTES # (AUTO) 1.1 X10^3/uL (1.3-2.9); LYMPHOCYTES % (AUTO) 10.2 % (21.0-51.0); MEAN CORPUSCULAR HEMOGLOBIN 25.9 pg (27.0-34.0); MEAN CORPUSCULAR HGB CONC 32.3 g/dL (33.0-35.0); MEAN CORPUSCULAR VOLUME 80.3 fL (80.0-100.0); NEUTROPHILS % (AUTO) 69.5 % (42.0-75.0); PLATELET COUNT 177 X10^3/uL (150.0-450.0); RED BLOOD COUNT 2.94 X10^6/uL (4.7-6.0); RED CELL DISTRIBUTION WIDTH 17.5 % (11.6-16.5); WHITE BLOOD COUNT 10.8 X10^3/uL (3.6-10.0)
[2023-06-07 06:51] LABS: ALBUMIN 1.6 g/dL (3.4-5.0); CALCIUM 6.6 mg/dL (8.5-10.1); CARBON DIOXIDE 15.8 mmol/L (21-32); COR CA(FOR HYPOALB) 8.5 mg/dL (8.5-10.1); CREATININE 4.1 mg/dL (0.70-1.30); MAGNESIUM 1.9 mg/dL (2.0-2.9); POTASSIUM 4.6 mmol/L (3.5-5.1); TOTAL PROTEIN 5.1 g/dL (6.4-8.2)
[2023-06-07] MEDS ORDERED: CONSULT PHARMACY - POTASSIUM & MAGNESIUM XX SCH (08:00)
[2023-06-07] MEDS: MAG-OX TAB PO SCH (08:46)
[2023-06-07] MEDS: K-DUR TAB 20 MEQ PO SCH (08:48)
[2023-06-07] MEDS: NS 1,000 ML IV 1,000 ML with MAGNESIUM SULFATE 50% INJ VIAL 1 G IV SCH (09:52)
[2023-06-07 10:33] LABS: RETICULOCYTE % 0.93 % (0.8-2.2)
[2023-06-07 12:27] LABS: ABG BASE EXCESS -11.9 mmol/L (-2.0-2.0); ABG HCO3 14.7 mmol/L (22-26)
--- NOTE | 2023-06-07 13:16 | RAD ---
EXAM: CHEST HISTORY: sob; COMPARISON: None. TECHNIQUE: Frontal view of the chest was submitted for interpretation. FINDINGS: The cardiomediastinal silhouette is within normal limits. Lungs show no focal consolidation, pneumot horax, or pleural fluid. IMPRESSION: No acute cardiopulmonary process. THIS IS AN ELECTRONICALLY VERIFIED FINAL REPORT 06/07/2023 1:13 PM - Electronically signed by Emmanuel Grijalva MD
[2023-06-07 13:50] LABS: BILIRUBIN,URINE NEGATIVE (NEGATIVE); BLOOD/HEMOGLOBIN,URINE 3+ (NEGATIVE); GLUCOSE, URINE NEGATIVE (NEGATIVE); KETONES,URINE NEGATIVE (NEGATIVE); LEUKOCYTE ESTERASE ,URINE 3+ (NEGATIVE); NITRITES,URINE NEGATIVE (NEGATIVE); PROTEIN,URINE 3+ (NEGATIVE); UROBILINOGEN,URINE NORMAL (NORMAL)
[2023-06-07 13:54] LABS: APPEARANCE,URINE HAZY (CLEAR); COLOR,URINE PALE YELLOW (YELLOW)
[2023-06-07 14:00] LABS: BACTERIA,URINE 1+ /HPF (NEGATIVE); SQUAMOUS EPITHELIAL CELL,UR RARE /HPF (NEGATIVE)
[2023-06-07] MEDS ORDERED: SOLU-Medrol 40 MG VIAL ONE (14:44)
[2023-06-07] MEDS: SOLU-Medrol 40 MG VIAL IVP ONE (15:29)
[2023-06-07] MEDS: NS 1,000 ML IV 1,000 ML IV SCH (20:12)
[2023-06-07] MEDS: CONSULT PHARMACY - POTASSIUM & MAGNESIUM XX SCH (20:13)
[2023-06-08 05:42] LABS: BASOPHILS % (AUTO) 0.3 % (0.2-1.0); HEMATOCRIT 26.4 % (42.0-54.0); HEMOGLOBIN 8.6 g/dL (13.5-18.0); LYMPHOCYTES # (AUTO) 0.4 X10^3/uL (1.3-2.9); LYMPHOCYTES % (AUTO) 4.1 % (21.0-51.0); MEAN CORPUSCULAR HEMOGLOBIN 25.8 pg (27.0-34.0); MEAN CORPUSCULAR HGB CONC 32.4 g/dL (33.0-35.0); MEAN CORPUSCULAR VOLUME 79.5 fL (80.0-100.0); MONOCYTES # (AUTO) 0.2 x10^3/uL (0.3-0.8); MONOCYTES % (AUTO) 2.1 % (0.0-13.0); NEUTROPHILS # (AUTO) 10.2 x10^3/uL (2.2-4.8); NEUTROPHILS % (AUTO) 93.5 % (42.0-75.0); PLATELET COUNT 214 X10^3/uL (150.0-450.0); RED BLOOD COUNT 3.32 X10^6/uL (4.7-6.0); RED CELL DISTRIBUTION WIDTH 17.1 % (11.6-16.5); WHITE BLOOD COUNT 10.9 X10^3/uL (3.6-10.0)
[2023-06-08 05:46] LABS: ALBUMIN 1.7 g/dL (3.4-5.0); CALCIUM 7.2 mg/dL (8.5-10.1); CARBON DIOXIDE 16.7 mmol/L (21-32); CREATININE 4.27 mg/dL (0.70-1.30); MAGNESIUM 2.6 mg/dL (2.0-2.9); TOTAL PROTEIN 5.6 g/dL (6.4-8.2)
[2023-06-08 05:52] LABS: POTASSIUM 5.4 mmol/L (3.5-5.1)
[2023-06-08 06:01] LABS: BAND NEUTROPHILS % 5 % (0-10)
[2023-06-08 06:02] LABS: ANISOCYTOSIS SLIGHT; HYPOCHROMASIA SLIGHT; METAMYELOCYTES % 1; PLATELET MORPHOLOGY COMMENT NORMAL (NORMAL); SMUDGE CELLS SLIGHT
[2023-06-08] MEDS: HEMOCYTE-PLUS PO SCH (11:48)
[2023-06-08] MEDS: LASIX IVP ONE (12:28)
[2023-06-08] MEDS: NS 1,000 ML IV 1,000 ML IV SCH (12:28)
[2023-06-09 06:27] LABS: BASOPHILS % (AUTO) 0.3 % (0.2-1.0); EOSINOPHILS # (AUTO) 0.1 x10^3/uL (0.0-0.2); EOSINOPHILS % (AUTO) 0.7 % (0.9-2.9); HEMATOCRIT 26.1 % (42.0-54.0); HEMOGLOBIN 8.1 g/dL (13.5-18.0); LYMPHOCYTES # (AUTO) 1.2 X10^3/uL (1.3-2.9); LYMPHOCYTES % (AUTO) 7.8 % (21.0-51.0); MEAN CORPUSCULAR HEMOGLOBIN 24.8 pg (27.0-34.0); MEAN CORPUSCULAR HGB CONC 31.1 g/dL (33.0-35.0); MEAN CORPUSCULAR VOLUME 79.6 fL (80.0-100.0); MONOCYTES # (AUTO) 1.4 x10^3/uL (0.3-0.8); MONOCYTES % (AUTO) 8.7 % (0.0-13.0); NEUTROPHILS # (AUTO) 13.1 x10^3/uL (2.2-4.8); NEUTROPHILS % (AUTO) 82.5 % (42.0-75.0); PLATELET COUNT 244 X10^3/uL (150.0-450.0); RED BLOOD COUNT 3.27 X10^6/uL (4.7-6.0); RED CELL DISTRIBUTION WIDTH 17.4 % (11.6-16.5); WHITE BLOOD COUNT 15.9 X10^3/uL (3.6-10.0)
[2023-06-09 06:32] LABS: ALBUMIN 1.6 g/dL (3.4-5.0); CALCIUM 7.5 mg/dL (8.5-10.1); CARBON DIOXIDE 19.6 mmol/L (21-32); COR CA(FOR HYPOALB) 9.4 mg/dL (8.5-10.1); CREATININE 4.5 mg/dL (0.70-1.30); POTASSIUM 5.4 mmol/L (3.5-5.1); TOTAL PROTEIN 5.3 g/dL (6.4-8.2)
--- NOTE | 2023-06-09 07:00 | RAD ---
EXAM:Portable chestHISTORY:Shortness of breath, dehydrationCOMPARISON:06/07/2023FINDINGS: slight haziness in the right lung base slightly more prominent than on the prior examination. Early infiltrate may be present. Continued follow-up of this area is recommended. Remainder of the lung black are clear. No definite pleural effusions are identified. Bony thorax is unremarkable.IMPRESSION:Possible early right basilar infiltrate. Follow-up of this area recommendedHyperinflation suggestive of COPD in the appropriate clinical settingTHIS IS AN ELECTRONICALLY VERIFIED FINAL REPORT06/09/2023 6:56 AM - Electronically signed by Zi Main MD
--- NOTE | 2023-06-09 10:15 | PCM.PROG ---
Progress Note Progress Note for Day of Date of Exam: 06/09/23 Subjective Subjective: Patient seen at bedside, no acute events overnight. He states he is feeling better. His diarrhea has slowed down, had 2 episodes yesterday. He denies N/V or abdominal pain. He has been tolerating PO intake. He is currently admitted for C diff and campy gastroenteritis, acute cystitis, and acute renal failure. CXR yesterday showed right basilar infiltrate. He is currently on room air. He is currently receiving PO vancomycin, Azithromycin and Rocephin. He was given IV lasix one dose yesterday. It did help with his UOP, renal function continues to decline. Patient does have significant LE edema and feels short of breath when laying flat. Labs/imaging reviewed: -WBC 15.9, hemoglobin 8.1, platelets 244, sodium 139, potassium 5.4, creatinine 4.50 - Blood Cx: no growth -Urine Cx: ESBL E.coli -CXR 06/09/23: Possible early right basilar infiltrate. Hyperinflation suggestive of COPD in the appropriate clinical setting -CTAP reviewed Plan: Will stop rocephin, start Invanz for ESBL UTI. Stop IVF, start lasix 40 mg IV daily. Monitor I&Os. Order BNP and urine lytes. Will repeat BMP this evening to monitor renal function. Continue current diet. Continue pantoprazole and probiotics. Continue home medications. Replace electrolytes as per protocol. Monitor AM labs/imaging. Past Medical Family Social History Allergies: Allergies No Known Drug Allergies Allergy (Verified 10/16/17 07:56) Vital Signs and I&O's Vital Signs: Vital Signs Temperature 97.9 F Temperature 97.8 F Pulse Rate [Left Brachial] 80 Pulse Rate [Left Brachial] 83 Respiratory Rate 18 Respiratory Rate 20 Blood Pressure [Right Arm] 154/67 Blood Pressure [Right Arm] 143/65 O2 Sat by Pulse Oximetry 94 O2 Sat by Pulse Oximetry 96 Intake and Output: Intake & Output 06/06/23 06/07/23 06/08/23 06/09/23 23:59 23:59 23:59 23:59 Intake Total 4172 / 4172 3577 / 3577 3442 / 3442 669 / 669 Output Total 420 / 420 1100 / 1100 1500 / 1500 350 / 350 Balance 3752 / 3752 2477 / 2477 1942 / 1942 319 / 319 Physical Exam Oriented: Normal Eyes: Normal Nose: Normal Throat: Normal Respiratory: Generalized, Diminished and Rales Cardiovascular: Normal and Edema Auscultation: Bowel Sounds: Normal Palpation: Normal Tenderness: Normal Skin: Decreased Turgur Musculoskeletal: Normal Psychiatric: Normal Mood Description: Calm Affect: Normal Speech Pattern: Clear and Appropriate Laboratory and Diagnostics 06/09/23 05:32 06/09/23 05:32 Labs: 06/05/23 22:40 Urine,Clean Catch Urine Culture - Final Escherichia Coli Esbl 06/06/23 09:48 Blood Blood Culture - Preliminary 06/06/23 09:35 Blood Blood Culture - Preliminary Laboratory WBC 15.9 X10^3/uL (3.6-10.0) H 06/09/23 05:32 RBC 3.27 X10^6/uL (4.7-6.0) L 06/09/23 05:32 Hgb 8.1 g/dL (13.5-18.0) L 06/09/23 05:32 Hct 26.1 % (42.0-54.0) L 06/09/23 05:32 MCV 79.6 fL (80.0-100.0) L 06/09/23 05:32 MCH 24.8 pg (27.0-34.0) L 06/09/23 05:32 MCHC 31.1 g/dL (33.0-35.0) L 06/09/23 05:32 RDW 17.4 % (11.6-16.5) H 06/09/23 05:32 Plt Count 244 X10^3/uL (150.0-450.0) 06/09/23 05:32 Plt Count Comment Adequate (ADEQUATE) 06/08/23 05:08 MPV 8.0 fL (7.4-11.0) 06/09/23 05:32 Neut % (Auto) 82.5 % (42.0-75.0) H 06/09/23 05:32 Lymph % (Auto) 7.8 % (21.0-51.0) L 06/09/23 05:32 [place] % (Auto) 8.7 % (0.0-13.0) 06/09/23 05:32 Eos % (Auto) 0.7 % (0.9-2.9) L 06/09/23 05:32 Baso % (Auto) 0.3 % (0.2-1.0) 06/09/23 05:32 Neut # (Auto) 13.1 x10^3/uL (2.2-4.8) H 06/09/23 05:32 Lymph # (Auto) 1.2 X10^3/uL (1.3-2.9) L 06/09/23 05:32 [place] # (Auto) 1.4 x10^3/uL (0.3-0.8) H 06/09/23 05:32 Eos # (Auto) 0.1 x10^3/uL (0.0-0.2) 06/09/23 05:32 Baso # (Auto) 0.0 X10^3/uL (0.0-0.1) 06/09/23 05:32 Absolute Nucleated RBC 0.0 /100WBC 06/09/23 05:32 Total Counted 100 06/08/23 05:08 Neutrophils % (Manual) 85 % (39-76) H 06/08/23 05:08 Band Neutrophils % 5 % (0-10) 06/08/23 05:08 Lymphocytes % (Manual) 6 % (13-43) L 06/08/23 05:08 Monocytes % (Manual) 3 % (4-9) L 06/08/23 05:08 Metamyelocytes % 1 06/08/23 05:08 Smudge Cells Slight A 06/08/23 05:08 Plt Morphology Comment Normal (NORMAL) 06/08/23 05:08 RBC Morphology Abnormal (NORMAL) 06/08/23 05:08 Hypochromasia Slight A 06/08/23 05:08 Anisocytosis Slight A 06/08/23 05:08 Absolute Retic 0.0277 10^6/uL 06/07/23 05:35 Percent Retic 0.93 % (0.8-2.2) 06/07/23 05:35 Sample Site Lbra 06/07/23 12:22 ABG pH 7.230 (7.35-7.45) L 06/07/23 12:22 ABG pCO2 35.0 mmHg (35.0-45.0) 06/07/23 12:22 ABG pO2 72.0 mmHg (80.0-100.0) L 06/07/23 12:22 ABG HCO3 14.7 mmol/L (22-26) L* 06/07/23 12:22 ABG O2 Saturation 91.0 % (90-100) 06/07/23 12:22 ABG Base Excess -11.9 mmol/L (-2.0-2.0) L 06/07/23 12:22 Sarbjit Test N/a 06/07/23 12:22 A-a Gradient 34.0 mmHg 06/07/23 12:22 FiO2 21.0 06/07/23 12:22 Blood Gas Comments Pt ran well elj 06/07/23 12:22 Sodium 139 mmol/L (136-145) 06/09/23 05:32 Corrected Sodium 140 mmol/L (136-145) 06/09/23 05:32 Potassium 5.4 mmol/L (3.5-5.1) H 06/09/23 05:32 Chloride 109 mmol/L (98-107) H 06/09/23 05:32 Carbon Dioxide 19.6 mmol/L (21-32) L 06/09/23 05:32 BUN 59 mg/dL (7-18) H 06/09/23 05:32 Creatinine 4.50 mg/dL (0.70-1.30) H 06/09/23 05:32 Est GFR (MDRD) Af Amer 16 (>60) L 06/09/23 05:32 Est GFR (MDRD) Non-Af 13 (>60) L 06/09/23 05:32 Glucose 136 mg/dL (65-99) H 06/09/23 05:32 POC Glucose (mg/dL) 133 mg/dL (65-99) H 06/09/23 06:07 Calcium 7.5 mg/dL (8.5-10.1) L 06/09/23 05:32 Corrected Calcium 9.4 mg/dL (8.5-10.1) 06/09/23 05:32 Magnesium 2.6 mg/dL (2.0-2.9) 06/08/23 05:08 Iron 11 ug/dL (50-175) L 06/07/23 05:35 TIBC 145 ug/dL (250-450) L 06/07/23 05:35 Transferrin 112 mg/dL (202-364) L 06/07/23 05:35 Ferritin 85 ng/mL (26-388) 06/07/23 05:35 Total Bilirubin 0.20 mg/dL (0.2-1.0) 06/09/23 05:32 AST 46 Units/L (15-37) H 06/09/23 05:32 ALT 50 Units/L (12-78) 06/09/23 05:32 Alkaline Phosphatase 65 Units/L (46-116) 06/09/23 05:32 B-Natriuretic Peptide 482 pg/mL (0-79) H 06/09/23 05:32 Total Protein 5.3 g/dL (6.4-8.2) L 06/09/23 05:32 Albumin 1.6 g/dL (3.4-5.0) L 06/09/23 05:32 Globulin 3.7 g/dL (2.5-4.5) 06/09/23 05:32 Albumin/Globulin Ratio 0.4 Ratio (1.1-2.1) L 06/09/23 05:32 Vitamin B12 231 pg/mL (193-986) 06/07/23 05:35 Folate 8.6 ng/mL (>8.6) 06/07/23 05:35 Specimen Type Clean catch urine 06/07/23 13:32 Urine Color Pale yellow (YELLOW) 06/07/23 13:32 Urine Appearance Hazy (CLEAR) 06/07/23 13:32 Urine pH 5.0 (5.0 - 8.0) 06/07/23 13:32 Ur Specific [place] 1.020 (1.000-1.030) 06/07/23 13:32 Urine Protein 3+ (NEGATIVE) 06/07/23 13:32 Urine Glucose (UA) Negative (NEGATIVE) 06/07/23 13:32 Urine Ketones Negative (NEGATIVE) 06/07/23 13:32 Urine Blood 3+ (NEGATIVE) 06/07/23 13:32 Urine Nitrite Negative (NEGATIVE) 06/07/23 13:32 Urine Bilirubin Negative (NEGATIVE) 06/07/23 13:32 Urine Urobilinogen Normal (NORMAL) 06/07/23 13:32 Ur Leukocyte Esterase 3+ (NEGATIVE) 06/07/23 13:32 Urine RBC 5-10 /HPF (0-3) A 06/07/23 13:32 Urine WBC Tntc /HPF (0-5) A 06/07/23 13:32 Ur Squamous Epith Cells Rare /HPF (NEGATIVE) 06/07/23 13:32 Amorphous Sediment 1+ /HPF (NEGATIVE) 06/07/23 13:32 Urine Bacteria 1+ /HPF (NEGATIVE) 06/07/23 13:32 Granular Casts Few /LPF (NEGATIVE) 06/05/23 22:40 Urine Mucus Rare /HPF (NEGATIVE) 06/07/23 13:32 Ur Culture Indicated? No/not indicated 06/07/23 13:32 Stl Occult Blood (IFOB) Positive (NEGATIVE) A 06/08/23 10:26 Plan (1) ESBL (extended spectrum beta-lactamase) producing bacteria infection: Status: Acute (2) C. difficile colitis: Status: Acute (3) Pneumonia: Status: Acute Qualifiers: Pneumonia type: due to unspecified organism Laterality: right Lung location: lower lobe of lung Qualified Code(s): J18.9 - Pneumonia, unspecified organism (4) Campylobacter diarrhea: Status: Acute (5) JAKE (acute kidney injury): Status: Acute (6) Acute dehydration: Status: Acute (7) Generalized weakness: Status: Acute (8) Anemia: Status: Acute Qualifiers: Anemia type: unspecified type Qualified Code(s): D64.9 - Anemia, unspecified (9) Hyperkalemia: Status: Acute
[2023-06-09] MEDS: INVanz INJ 1 GRAM VIAL 0.5 G in NS 50 ML IV 50 ML IV SCH (10:54)
[2023-06-09] MEDS: LASIX IVP SCH (10:58)
[2023-06-09 17:11] LABS: CALCIUM 7.5 mg/dL (8.5-10.1); CARBON DIOXIDE 17.6 mmol/L (21-32); CREATININE 4.57 mg/dL (0.70-1.30); POTASSIUM 5.2 mmol/L (3.5-5.1)
[2023-06-09] MEDS: DUONEB 0.5 MG/3 MG (3 mL) NEB SCH (17:26)
[2023-06-09] MEDS: CRESTOR TAB 10 MG PO SCH (20:39)
[2023-06-10 05:41] LABS: BASOPHILS # (AUTO) 0.1 X10^3/uL (0.0-0.1); BASOPHILS % (AUTO) 0.9 % (0.2-1.0); EOSINOPHILS # (AUTO) 0.3 x10^3/uL (0.0-0.2); EOSINOPHILS % (AUTO) 3.2 % (0.9-2.9); HEMATOCRIT 23.7 % (42.0-54.0); HEMOGLOBIN 7.6 g/dL (13.5-18.0); LYMPHOCYTES # (AUTO) 0.7 X10^3/uL (1.3-2.9); LYMPHOCYTES % (AUTO) 7.4 % (21.0-51.0); MEAN CORPUSCULAR HEMOGLOBIN 25.3 pg (27.0-34.0); MEAN CORPUSCULAR HGB CONC 31.9 g/dL (33.0-35.0); MEAN CORPUSCULAR VOLUME 79.4 fL (80.0-100.0); MEAN PLATELET VOLUME 7.9 fL (7.4-11.0); NEUTROPHILS # (AUTO) 7.6 x10^3/uL (2.2-4.8); NEUTROPHILS % (AUTO) 78.5 % (42.0-75.0); PLATELET COUNT 222 X10^3/uL (150.0-450.0); RED BLOOD COUNT 2.99 X10^6/uL (4.7-6.0); RED CELL DISTRIBUTION WIDTH 17.7 % (11.6-16.5); WHITE BLOOD COUNT 9.7 X10^3/uL (3.6-10.0)
[2023-06-10 05:55] LABS: ALBUMIN 1.6 g/dL (3.4-5.0); CALCIUM 7.2 mg/dL (8.5-10.1); CARBON DIOXIDE 17.8 mmol/L (21-32); COR CA(FOR HYPOALB) 9.1 mg/dL (8.5-10.1); CREATININE 4.57 mg/dL (0.70-1.30)
--- NOTE | 2023-06-10 09:46 | PCM.PROG ---
Progress Note Progress Note for Day of Date of Exam: 06/10/23 Subjective Subjective: Patient seen at bedside, no acute events overnight. He reports having 2 episodes of loose stools yesterday, denies nausea or vomiting. He has been tolerating PO intake. He worked with PT but felt weak. He states he gets SOB easily and is not able to exert himself. He states he feels like his breathing is labored. He has not been requiring O2, uses CPAP at night. Denies chest pain or pressure. He is being treated for ESBL UTI, C. diff and Campy colitis, JAKE and pneumonia. His renal function is similar to the labs done yesterday evening. He did have good UOP with lasix. His LE edema is slightly better. Labs/imaging reviewed: -WBC 9.7, hemoglobin 7.6, platelets 222 sodium 140, potassium 5.0, creatinine 4.57 BNP: elevated -FENa: suggestive of ATN - Blood Cx: no growth -Urine Cx: ESBL E.coli -CXR 06/09/23: Possible early right basilar infiltrate. Hyperinflation suggestive of COPD in the appropriate clinical setting -CTAP reviewed Plan: Continue Invanz for ESBL UTI. Continue lasix 40 mg IV daily. Monitor I&Os. Order CT-chest and echo. Continue current diet. Continue pantoprazole and probiotics. Continue home medications. Replace electrolytes as per protocol. Encouraged patient to work with PT as tolerated, use IS prn. Monitor AM labs/imaging. Time spent for clinical assessment, reviewing labs/imaging, physical exam, decision making and documentation greater than 45 mins. Past Medical Family Social History Allergies: Allergies No Known Drug Allergies Allergy (Verified 10/16/17 07:56) Vital Signs and I&O's Vital Signs: Vital Signs Temperature 98.1 F Pulse Rate [Left Brachial] 83 Pulse Rate 82 Respiratory Rate 18 Blood Pressure [Right Arm] 172/76 O2 Sat by Pulse Oximetry 97 O2 Sat by Pulse Oximetry 98 Intake and Output: Intake & Output 06/07/23 06/08/23 06/09/23 06/10/23 23:59 23:59 23:59 23:59 Intake Total 3577 / 3577 3442 / 3442 1749 / 1749 100 / 100 Output Total 1100 / 1100 1500 / 1500 2190 / 2190 420 / 420 Balance 2477 / 2477 1942 / 1942 -441 / -441 -320 / -320 Physical Exam Oriented: Normal Eyes: Normal Nose: Normal Throat: Normal Respiratory: Generalized, Diminished and Rales Cardiovascular: Normal and Edema Auscultation: Bowel Sounds: Normal Palpation: Normal Tenderness: Normal Skin: Decreased Turgur Musculoskeletal: Normal Psychiatric: Normal Mood Description: Calm Affect: Normal Speech Pattern: Clear and Appropriate Laboratory and Diagnostics 06/10/23 04:55 06/10/23 04:55 Labs: 06/08/23 22:37 Urine,Clean Catch Urine Culture - Preliminary 06/05/23 22:40 Urine,Clean Catch Urine Culture - Final Escherichia Coli Esbl 06/06/23 09:48 Blood Blood Culture - Preliminary 06/06/23 09:35 Blood Blood Culture - Preliminary Laboratory WBC 9.7 X10^3/uL (3.6-10.0) 06/10/23 04:55 RBC 2.99 X10^6/uL (4.7-6.0) L 06/10/23 04:55 Hgb 7.6 g/dL (13.5-18.0) L 06/10/23 04:55 Hct 23.7 % (42.0-54.0) L 06/10/23 04:55 MCV 79.4 fL (80.0-100.0) L 06/10/23 04:55 MCH 25.3 pg (27.0-34.0) L 06/10/23 04:55 MCHC 31.9 g/dL (33.0-35.0) L 06/10/23 04:55 RDW 17.7 % (11.6-16.5) H 06/10/23 04:55 Plt Count 222 X10^3/uL (150.0-450.0) 06/10/23 04:55 Plt Count Comment Adequate (ADEQUATE) 06/08/23 05:08 MPV 7.9 fL (7.4-11.0) 06/10/23 04:55 Neut % (Auto) 78.5 % (42.0-75.0) H 06/10/23 04:55 Lymph % (Auto) 7.4 % (21.0-51.0) L 06/10/23 04:55 [place] % (Auto) 10.0 % (0.0-13.0) 06/10/23 04:55 Eos % (Auto) 3.2 % (0.9-2.9) H 06/10/23 04:55 Baso % (Auto) 0.9 % (0.2-1.0) 06/10/23 04:55 Neut # (Auto) 7.6 x10^3/uL (2.2-4.8) H 06/10/23 04:55 Lymph # (Auto) 0.7 X10^3/uL (1.3-2.9) L 06/10/23 04:55 [place] # (Auto) 1.0 x10^3/uL (0.3-0.8) H 06/10/23 04:55 Eos # (Auto) 0.3 x10^3/uL (0.0-0.2) H 06/10/23 04:55 Baso # (Auto) 0.1 X10^3/uL (0.0-0.1) 06/10/23 04:55 Absolute Nucleated RBC 0.0 /100WBC 06/10/23 04:55 Total Counted 100 06/08/23 05:08 Neutrophils % (Manual) 85 % (39-76) H 06/08/23 05:08 Band Neutrophils % 5 % (0-10) 06/08/23 05:08 Lymphocytes % (Manual) 6 % (13-43) L 06/08/23 05:08 Monocytes % (Manual) 3 % (4-9) L 06/08/23 05:08 Metamyelocytes % 1 06/08/23 05:08 Smudge Cells Slight A 06/08/23 05:08 Plt Morphology Comment Normal (NORMAL) 06/08/23 05:08 RBC Morphology Abnormal (NORMAL) 06/08/23 05:08 Hypochromasia Slight A 06/08/23 05:08 Anisocytosis Slight A 06/08/23 05:08 Absolute Retic 0.0277 10^6/uL 06/07/23 05:35 Percent Retic 0.93 % (0.8-2.2) 06/07/23 05:35 Sample Site Lbra 06/07/23 12:22 ABG pH 7.230 (7.35-7.45) L 06/07/23 12:22 ABG pCO2 35.0 mmHg (35.0-45.0) 06/07/23 12:22 ABG pO2 72.0 mmHg (80.0-100.0) L 06/07/23 12:22 ABG HCO3 14.7 mmol/L (22-26) L* 06/07/23 12:22 ABG O2 Saturation 91.0 % (90-100) 06/07/23 12:22 ABG Base Excess -11.9 mmol/L (-2.0-2.0) L 06/07/23 12:22 Sarbjit Test N/a 06/07/23 12:22 A-a Gradient 34.0 mmHg 06/07/23 12:22 FiO2 21.0 06/07/23 12:22 Blood Gas Comments Pt ran well elj 06/07/23 12:22 Sodium 140 mmol/L (136-145) 06/10/23 04:55 Corrected Sodium 141 mmol/L (136-145) 06/10/23 04:55 Potassium 5.0 mmol/L (3.5-5.1) 06/10/23 04:55 Chloride 111 mmol/L (98-107) H 06/10/23 04:55 Carbon Dioxide 17.8 mmol/L (21-32) L 06/10/23 04:55 BUN 59 mg/dL (7-18) H 06/10/23 04:55 Creatinine 4.57 mg/dL (0.70-1.30) H 06/10/23 04:55 Est GFR (MDRD) Af Amer 16 (>60) L 06/10/23 04:55 Est GFR (MDRD) Non-Af 13 (>60) L 06/10/23 04:55 Glucose 125 mg/dL (65-99) H 06/10/23 04:55 POC Glucose (mg/dL) 118 mg/dL (65-99) H 06/10/23 05:16 Calcium 7.2 mg/dL (8.5-10.1) L 06/10/23 04:55 Corrected Calcium 9.1 mg/dL (8.5-10.1) 06/10/23 04:55 Magnesium 2.6 mg/dL (2.0-2.9) 06/08/23 05:08 Iron 11 ug/dL (50-175) L 06/07/23 05:35 TIBC 145 ug/dL (250-450) L 06/07/23 05:35 Transferrin 112 mg/dL (202-364) L 06/07/23 05:35 Ferritin 85 ng/mL (26-388) 06/07/23 05:35 Total Bilirubin 0.20 mg/dL (0.2-1.0) 06/10/23 04:55 AST 42 Units/L (15-37) H 06/10/23 04:55 ALT 67 Units/L (12-78) 06/10/23 04:55 Alkaline Phosphatase 62 Units/L (46-116) 06/10/23 04:55 B-Natriuretic Peptide 482 pg/mL (0-79) H 06/09/23 05:32 Total Protein 5.0 g/dL (6.4-8.2) L 06/10/23 04:55 Albumin 1.6 g/dL (3.4-5.0) L 06/10/23 04:55 Globulin 3.4 g/dL (2.5-4.5) 06/10/23 04:55 Albumin/Globulin Ratio 0.5 Ratio (1.1-2.1) L 06/10/23 04:55 Vitamin B12 231 pg/mL (193-986) 06/07/23 05:35 Folate 8.6 ng/mL (>8.6) 06/07/23 05:35 Specimen Type Clean catch urine 06/07/23 13:32 Urine Color Pale yellow (YELLOW) 06/07/23 13:32 Urine Appearance Hazy (CLEAR) 06/07/23 13:32 Urine pH 5.0 (5.0 - 8.0) 06/07/23 13:32 Ur Specific [place] 1.020 (1.000-1.030) 06/07/23 13:32 Urine Protein 3+ (NEGATIVE) 06/07/23 13:32 Urine Glucose (UA) Negative (NEGATIVE) 06/07/23 13:32 Urine Ketones Negative (NEGATIVE) 06/07/23 13:32 Urine Blood 3+ (NEGATIVE) 06/07/23 13:32 Urine Nitrite Negative (NEGATIVE) 06/07/23 13:32 Urine Bilirubin Negative (NEGATIVE) 06/07/23 13:32 Urine Urobilinogen Normal (NORMAL) 06/07/23 13:32 Ur Leukocyte Esterase 3+ (NEGATIVE) 06/07/23 13:32 Urine RBC 5-10 /HPF (0-3) A 06/07/23 13:32 Urine WBC Tntc /HPF (0-5) A 06/07/23 13:32 Ur Squamous Epith Cells Rare /HPF (NEGATIVE) 06/07/23 13:32 Amorphous Sediment 1+ /HPF (NEGATIVE) 06/07/23 13:32 Urine Bacteria 1+ /HPF (NEGATIVE) 06/07/23 13:32 Granular Casts Few /LPF (NEGATIVE) 06/05/23 22:40 Urine Mucus Rare /HPF (NEGATIVE) 06/07/23 13:32 Ur Culture Indicated? No/not indicated 06/07/23 13:32 Ur Random Sodium 101 mmol/L (40-220) 06/09/23 14:53 Urine Creatinine 41.19 mg/dL (40-278) 06/09/23 14:53 Stl Occult Blood (IFOB) Positive (NEGATIVE) A 06/08/23 10:26 Plan (1) ESBL (extended spectrum beta-lactamase) producing bacteria infection: Status: Acute (2) C. difficile colitis: Status: Acute (3) Pneumonia: Status: Acute Qualifiers: Pneumonia type: due to unspecified organism Laterality: right Lung location: lower lobe of lung Qualified Code(s): J18.9 - Pneumonia, unspecified organism (4) Campylobacter diarrhea: Status: Acute (5) JAKE (acute kidney injury): Status: Acute (6) Acute dehydration: Status: Acute (7) Generalized weakness: Status: Acute (8) Anemia: Status: Acute Qualifiers: Anemia type: unspecified type Qualified Code(s): D64.9 - Anemia, unspecified (9) Hyperkalemia: Status: Acute
--- NOTE | 2023-06-10 13:58 | CT ---
EXAM: CT chest without IV contrast HISTORY: sob, efusion, lung infiltrate, abnormal CT abdomen- COMPARISON: CT abdomen 06/06/2023 TECHNIQUE: Multiple axial images of the chest were obtained from the thoracic inlet to the upper abdomenwithout the administration of IV contrast. Sagittal and coronal reformations are performed. Dose reduction t echniques including Automated Exposure Control (AEC) and adjustment of mA and kV were utilized. FINDINGS: Moderate pleural effusions are seen, [id number]. These have likely worsened since prior CT abdomen. There is persistent mild pericardial effusion that is similar to prior study. The hear t is normal in size. In the posterior aspect of the right upper lobe there is a semi solid nodule measuring 5.3 mm on imag e 22 of series 4. Several very tiny nodules are seen in the right lower lobe and right middle lobe m easuring up to 2.5 mm in size. A few similar tiny nodules are seen in the left lung. Largest left l monika nodule is seen in the left upper lobe on image 30 of series 4. It measures 2.8 mm. Coronary artery vascular calcifications are seen. No mediastinal lymphadenopathy. Thoracic aorta is normal in size. There is cholelithiasis. Probable cyst in the right hepatic lobe is unchanged. Be nign bone islands are seen in the T9 and T6 vertebrae. IMPRESSION: Worsening moderate pleural effusions are seen without evidence of CHF. Persistent small pericardial effusion is seen. There are multiple tiny nodules in the lungs. Largest is seen in the right upper lobe measuring 5.3 mm, but most of the nodules measure under 3.0 mm. Suggest follow-up CT in 6 months' time THIS IS AN ELECTRONICALLY VERIFIED FINAL REPORT 06/10/2023 1:55 PM - Electronically signed by Demetrio Rubin MD
[2023-06-10] MEDS: LASIX IVP SCH (20:53)
[2023-06-11 06:12] LABS: BASOPHILS # (AUTO) 0.1 X10^3/uL (0.0-0.1); BASOPHILS % (AUTO) 0.5 % (0.2-1.0); EOSINOPHILS # (AUTO) 0.4 x10^3/uL (0.0-0.2); EOSINOPHILS % (AUTO) 3.8 % (0.9-2.9); HEMATOCRIT 24.9 % (42.0-54.0); LYMPHOCYTES # (AUTO) 1.2 X10^3/uL (1.3-2.9); MEAN CORPUSCULAR HEMOGLOBIN 25.2 pg (27.0-34.0); MEAN CORPUSCULAR VOLUME 78.7 fL (80.0-100.0); MEAN PLATELET VOLUME 7.5 fL (7.4-11.0); MONOCYTES % (AUTO) 8.4 % (0.0-13.0); NEUTROPHILS % (AUTO) 77.3 % (42.0-75.0); PLATELET COUNT 240 X10^3/uL (150.0-450.0); RED BLOOD COUNT 3.16 X10^6/uL (4.7-6.0); RED CELL DISTRIBUTION WIDTH 17.9 % (11.6-16.5); WHITE BLOOD COUNT 11.6 X10^3/uL (3.6-10.0)
[2023-06-11 06:29] LABS: ALANINE AMINOTRANSFERASE 88 Units/L (12-78); ALBUMIN 1.8 g/dL (3.4-5.0); ALKALINE PHOSPHATASE 69 Units/L (46-116); ASPARTATE AMINO TRANSFERASE 54 Units/L (15-37); BLOOD UREA NITROGEN 57 mg/dL (7-18); CALCIUM 7.6 mg/dL (8.5-10.1); CARBON DIOXIDE 18.4 mmol/L (21-32); CHLORIDE 109 mmol/L (98-107); COR CA(FOR HYPOALB) 9.4 mg/dL (8.5-10.1); CREATININE 4.46 mg/dL (0.70-1.30); GLUCOSE 107 mg/dL (65-99); POTASSIUM 4.9 mmol/L (3.5-5.1); SODIUM 139 mmol/L (136-145); TOTAL PROTEIN 5.5 g/dL (6.4-8.2); eGFR NON BLACK RACES 13 (>60)
--- NOTE | 2023-06-11 09:59 | PCM.PROG ---
Progress Note Progress Note for Day of Date of Exam: 06/11/23 Subjective Subjective: Patient seen at bedside, no acute events overnight. He states he is feeling better, breathing has improved. He did work with PT a little bit. They recommended SNF placement. Patient reports feeling weak with exertion. He states diarrhea has subsided, has been tolerating PO intake. He is being treated for ESBL UTI, C. diff and Campy colitis, JAKE and pneumonia. His renal function is slightly better today. CT-chest did show moderate bilateral pleural effusions. Echo showed EF 64%., Grade I DD. AIT showed strep pneumonia. Patient is currently on Invanz. He has had good UOP with lasix. Labs/imaging reviewed: -WBC 11.6, hemoglobin 8.0, K:4.9, creatinine 4.46 -FENa: suggestive of ATN - Blood Cx: no growth -Urine Cx: ESBL E.coli -CT-chest: moderate pleural effusions. Multiple lung nodules. Plan: Continue Invanz for ESBL UTI. Continue Vancomycin PO and azithromycin for colitis. Continue lasix 40 mg IV BID. Monitor I&Os. Monitor renal function. Continue current diet. Continue pantoprazole and probiotics. Continue home medications. Replace electrolytes as per protocol. Encouraged patient to work with PT as tolerated, will need SNF placement. IS prn. Monitor AM labs/imaging. Time spent for clinical assessment, reviewing labs/imaging, physical exam, decision making and documentation greater than 45 mins. Past Medical Family Social History Allergies: Allergies No Known Drug Allergies Allergy (Verified 10/16/17 07:56) Vital Signs and I&O's Vital Signs: Vital Signs Temperature 98.7 F Pulse Rate [Left Brachial] 88 Respiratory Rate 20 Blood Pressure [Right Arm] 153/67 O2 Sat by Pulse Oximetry 96 Intake and Output: Intake & Output 06/08/23 06/09/23 06/10/23 06/11/23 23:59 23:59 23:59 23:59 Intake Total 3442 / 3442 1749 / 1749 270 / 270 120 / 120 Output Total 1500 / 1500 2190 / 2190 1720 / 1720 1200 / 1200 Balance 194 / 194 -441 / -441 -1450 / -1450 -1080 / -1080 Physical Exam Oriented: Normal Eyes: Normal Nose: Normal Throat: Normal Respiratory: Generalized, Diminished and R[place] Cardiovascular: Normal and Edema Auscultation: Bowel Sounds: Normal Palpation: Normal Tenderness: Normal Skin: Decreased Turgur Musculoskeletal: Normal Psychiatric: Normal Mood Description: Calm Affect: Normal Speech Pattern: Clear and Appropriate Laboratory and Diagnostics 06/11/23 05:51 06/11/23 05:51 Labs: 06/08/23 22:37 Urine,Clean Catch Urine Culture - Final Escherichia Coli Esbl 06/05/23 22:40 Urine,Clean Catch Urine Culture - Final Escherichia Coli Esbl 06/06/23 09:48 Blood Blood Culture - Preliminary 06/06/23 09:35 Blood Blood Culture - Preliminary Laboratory WBC 11.6 X10^3/uL (3.6-10.0) H 06/11/23 05:51 RBC 3.16 X10^6/uL (4.7-6.0) L 06/11/23 05:51 Hgb 8.0 g/dL (13.5-18.0) L 06/11/23 05:51 Hct 24.9 % (42.0-54.0) L 06/11/23 05:51 MCV 78.7 fL (80.0-100.0) L 06/11/23 05:51 MCH 25.2 pg (27.0-34.0) L 06/11/23 05:51 MCHC 32.0 g/dL (33.0-35.0) L 06/11/23 05:51 RDW 17.9 % (11.6-16.5) H 06/11/23 05:51 Plt Count 240 X10^3/uL (150.0-450.0) 06/11/23 05:51 Plt Count Comment Adequate (ADEQUATE) 06/08/23 05:08 MPV 7.5 fL (7.4-11.0) 06/11/23 05:51 Neut % (Auto) 77.3 % (42.0-75.0) H 06/11/23 05:51 Lymph % (Auto) 10.0 % (21.0-51.0) L 06/11/23 05:51 [place] % (Auto) 8.4 % (0.0-13.0) 06/11/23 05:51 Eos % (Auto) 3.8 % (0.9-2.9) H 06/11/23 05:51 Baso % (Auto) 0.5 % (0.2-1.0) 06/11/23 05:51 Neut # (Auto) 9.0 x10^3/uL (2.2-4.8) H 06/11/23 05:51 Lymph # (Auto) 1.2 X10^3/uL (1.3-2.9) L 06/11/23 05:51 [place] # (Auto) 1.0 x10^3/uL (0.3-0.8) H 06/11/23 05:51 Eos # (Auto) 0.4 x10^3/uL (0.0-0.2) H 06/11/23 05:51 Baso # (Auto) 0.1 X10^3/uL (0.0-0.1) 06/11/23 05:51 Absolute Nucleated RBC 0.1 /100WBC 06/11/23 05:51 Total Counted 100 06/08/23 05:08 Neutrophils % (Manual) 85 % (39-76) H 06/08/23 05:08 Band Neutrophils % 5 % (0-10) 06/08/23 05:08 Lymphocytes % (Manual) 6 % (13-43) L 06/08/23 05:08 Monocytes % (Manual) 3 % (4-9) L 06/08/23 05:08 Metamyelocytes % 1 06/08/23 05:08 Smudge Cells Slight A 06/08/23 05:08 Plt Morphology Comment Normal (NORMAL) 06/08/23 05:08 RBC Morphology Abnormal (NORMAL) 06/08/23 05:08 Hypochromasia Slight A 06/08/23 05:08 Anisocytosis Slight A 06/08/23 05:08 Absolute Retic 0.0277 10^6/uL 06/07/23 05:35 Percent Retic 0.93 % (0.8-2.2) 06/07/23 05:35 Sample Site Lbra 06/07/23 12:22 ABG pH 7.230 (7.35-7.45) L 06/07/23 12:22 ABG pCO2 35.0 mmHg (35.0-45.0) 06/07/23 12:22 ABG pO2 72.0 mmHg (80.0-100.0) L 06/07/23 12:22 ABG HCO3 14.7 mmol/L (22-26) L* 06/07/23 12:22 ABG O2 Saturation 91.0 % (90-100) 06/07/23 12:22 ABG Base Excess -11.9 mmol/L (-2.0-2.0) L 06/07/23 12:22 Sarbjit Test N/a 06/07/23 12:22 A-a Gradient 34.0 mmHg 06/07/23 12:22 FiO2 21.0 06/07/23 12:22 Blood Gas Comments Pt ran well elj 06/07/23 12:22 Sodium 139 mmol/L (136-145) 06/11/23 05:51 Corrected Sodium TNP 06/11/23 05:51 Potassium 4.9 mmol/L (3.5-5.1) 06/11/23 05:51 Chloride 109 mmol/L (98-107) H 06/11/23 05:51 Carbon Dioxide 18.4 mmol/L (21-32) L 06/11/23 05:51 BUN 57 mg/dL (7-18) H 06/11/23 05:51 Creatinine 4.46 mg/dL (0.70-1.30) H 06/11/23 05:51 Est GFR (MDRD) Af Amer 16 (>60) L 06/11/23 05:51 Est GFR (MDRD) Non-Af 13 (>60) L 06/11/23 05:51 Glucose 107 mg/dL (65-99) H 06/11/23 05:51 POC Glucose (mg/dL) 103 mg/dL (65-99) H 06/11/23 05:45 Calcium 7.6 mg/dL (8.5-10.1) L 06/11/23 05:51 Corrected Calcium 9.4 mg/dL (8.5-10.1) 06/11/23 05:51 Magnesium 2.6 mg/dL (2.0-2.9) 06/08/23 05:08 Iron 11 ug/dL (50-175) L 06/07/23 05:35 TIBC 145 ug/dL (250-450) L 06/07/23 05:35 Transferrin 112 mg/dL (202-364) L 06/07/23 05:35 Ferritin 85 ng/mL (26-388) 06/07/23 05:35 Total Bilirubin 0.30 mg/dL (0.2-1.0) 06/11/23 05:51 AST 54 Units/L (15-37) H 06/11/23 05:51 ALT 88 Units/L (12-78) H 06/11/23 05:51 Alkaline Phosphatase 69 Units/L (46-116) 06/11/23 05:51 B-Natriuretic Peptide 482 pg/mL (0-79) H 06/09/23 05:32 Total Protein 5.5 g/dL (6.4-8.2) L 06/11/23 05:51 Albumin 1.8 g/dL (3.4-5.0) L 06/11/23 05:51 Globulin 3.7 g/dL (2.5-4.5) 06/11/23 05:51 Albumin/Globulin Ratio 0.5 Ratio (1.1-2.1) L 06/11/23 05:51 Vitamin B12 231 pg/mL (193-986) 06/07/23 05:35 Folate 8.6 ng/mL (>8.6) 06/07/23 05:35 Specimen Type Clean catch urine 06/07/23 13:32 Urine Color Pale yellow (YELLOW) 06/07/23 13:32 Urine Appearance Hazy (CLEAR) 06/07/23 13:32 Urine pH 5.0 (5.0 - 8.0) 06/07/23 13:32 Ur Specific [place] 1.020 (1.000-1.030) 06/07/23 13:32 Urine Protein 3+ (NEGATIVE) 06/07/23 13:32 Urine Glucose (UA) Negative (NEGATIVE) 06/07/23 13:32 Urine Ketones Negative (NEGATIVE) 06/07/23 13:32 Urine Blood 3+ (NEGATIVE) 06/07/23 13:32 Urine Nitrite Negative (NEGATIVE) 06/07/23 13:32 Urine Bilirubin Negative (NEGATIVE) 06/07/23 13:32 Urine Urobilinogen Normal (NORMAL) 06/07/23 13:32 Ur Leukocyte Esterase 3+ (NEGATIVE) 06/07/23 13:32 Urine RBC 5-10 /HPF (0-3) A 06/07/23 13:32 Urine WBC Tntc /HPF (0-5) A 06/07/23 13:32 Ur Squamous Epith Cells Rare /HPF (NEGATIVE) 06/07/23 13:32 Amorphous Sediment 1+ /HPF (NEGATIVE) 06/07/23 13:32 Urine Bacteria 1+ /HPF (NEGATIVE) 06/07/23 13:32 Granular Casts Few /LPF (NEGATIVE) 06/05/23 22:40 Urine Mucus Rare /HPF (NEGATIVE) 06/07/23 13:32 Ur Culture Indicated? No/not indicated 06/07/23 13:32 Ur Random Sodium 101 mmol/L (40-220) 06/09/23 14:53 Urine Creatinine 41.19 mg/dL (40-278) 06/09/23 14:53 Stl Occult Blood (IFOB) Positive (NEGATIVE) A 06/08/23 10:26 Resp Viral Panel (PCR) See scanned report 06/09/23 10:26 Plan (1) Pleural effusion: Status: Acute (2) ESBL (extended spectrum beta-lactamase) producing bacteria infection: Status: Acute (3) C. difficile colitis: Status: Acute (4) Pneumonia: Status: Acute Qualifiers: Laterality: right Lung location: lower lobe of lung Pneumonia type: due to unspecified organism Qualified Code(s): J18.9 - Pneumonia, unspecified organism (5) Campylobacter diarrhea: Status: Acute (6) JAKE (acute kidney injury): Status: Acute (7) Acute dehydration: Status: Acute (8) Generalized weakness: Status: Acute (9) Anemia: Status: Acute Qualifiers: Anemia type: unspecified type Qualified Code(s): D64.9 - Anemia, unspecified
[2023-06-11] MEDS: HEPARIN SODIUM INJ 5000 UNITS SC SCH (21:41)
[2023-06-12 05:58] LABS: BASOPHILS % (AUTO) 0.4 % (0.2-1.0); EOSINOPHILS # (AUTO) 0.3 x10^3/uL (0.0-0.2); EOSINOPHILS % (AUTO) 4.2 % (0.9-2.9); HEMATOCRIT 21.6 % (42.0-54.0); HEMOGLOBIN 7.1 g/dL (13.5-18.0); LYMPHOCYTES # (AUTO) 0.6 X10^3/uL (1.3-2.9); LYMPHOCYTES % (AUTO) 8.3 % (21.0-51.0); MEAN CORPUSCULAR HEMOGLOBIN 25.6 pg (27.0-34.0); MEAN CORPUSCULAR HGB CONC 32.7 g/dL (33.0-35.0); MEAN CORPUSCULAR VOLUME 78.1 fL (80.0-100.0); MEAN PLATELET VOLUME 7.6 fL (7.4-11.0); MONOCYTES # (AUTO) 0.9 x10^3/uL (0.3-0.8); MONOCYTES % (AUTO) 11.2 % (0.0-13.0); NEUTROPHILS # (AUTO) 5.9 x10^3/uL (2.2-4.8); NEUTROPHILS % (AUTO) 75.9 % (42.0-75.0); PLATELET COUNT 211 X10^3/uL (150.0-450.0); RED BLOOD COUNT 2.77 X10^6/uL (4.7-6.0); RED CELL DISTRIBUTION WIDTH 17.4 % (11.6-16.5); WHITE BLOOD COUNT 7.8 X10^3/uL (3.6-10.0)
[2023-06-12 06:12] LABS: ALANINE AMINOTRANSFERASE 70 Units/L (12-78); ALBUMIN 1.7 g/dL (3.4-5.0); ALKALINE PHOSPHATASE 60 Units/L (46-116); ASPARTATE AMINO TRANSFERASE 33 Units/L (15-37); BLOOD UREA NITROGEN 52 mg/dL (7-18); CALCIUM 7.4 mg/dL (8.5-10.1); CARBON DIOXIDE 20.3 mmol/L (21-32); CHLORIDE 109 mmol/L (98-107); COR CA(FOR HYPOALB) 9.2 mg/dL (8.5-10.1); CREATININE 4.26 mg/dL (0.70-1.30); GLUCOSE 103 mg/dL (65-99); POTASSIUM 4.7 mmol/L (3.5-5.1); SODIUM 139 mmol/L (136-145); TOTAL PROTEIN 5.1 g/dL (6.4-8.2); eGFR NON BLACK RACES 14 (>60)
[2023-06-12] MEDS: VANCOMYCIN HCL 250 MG CAP PO SCH (10:22)
[2023-06-12] MEDS: NS 500 ML IV 500 ML IV ONE (10:23)
--- NOTE | 2023-06-12 13:55 | PCM.PROG ---
Progress Note Progress Note for Day of Date of Exam: 06/12/23 Subjective Subjective: Patient is resting in bed this morning. No acute events overnight. He reports improvement in her symptoms. PT recommends SNF placement. Diarrhea has subsided, has been tolerating PO intake. He is being treated for ESBL UTI, C. diff and Campy colitis, JAKE and pneumonia. His renal function is slightly better today. CT-chest did show moderate bilateral pleural effusions. Echo showed EF 64%., Grade I DD. AIT showed strep pneumonia. Patient is currently on Invanz. He has had good UOP with lasix. Labs/imaging reviewed: -WBC 7.8, hemoglobin 7.1, Plt 211, Na 139, K:4.7, creatinine 4.46>4.26 -FENa: suggestive of ATN -Blood Cx: no growth -AIT: strep pneu. -Urine Cx: ESBL E.coli -CT-chest: moderate pleural effusions. Multiple lung nodules. Plan: Continue Invanz for ESBL UTI. Continue Vancomycin PO and can discontinue azithromycin for campy, has completed course. Continue lasix 40 mg IV BID. Monitor I&Os. Monitor renal function, improving slowly. Continue current diet. Continue pantoprazole and probiotics. Continue home medications. Replace electrolytes as per protocol. Encouraged patient to work with PT as tolerated, will need SNF placement. IS prn. Monitor AM labs/imaging. Past Medical Family Social History Allergies: Allergies No Known Drug Allergies Allergy (Verified 10/16/17 07:56) Vital Signs and I&O's Vital Signs: Vital Signs Temperature 97.2 F Temperature 97.4 F Pulse Rate [Left Brachial] 78 Pulse Rate [Left Brachial] 78 Respiratory Rate 19 Respiratory Rate 18 Blood Pressure [Left Arm] 177/79 Blood Pressure [Left Arm] 160/72 O2 Sat by Pulse Oximetry 95 O2 Sat by Pulse Oximetry 94 Intake and Output: Intake & Output 06/09/23 06/10/23 06/11/23 06/12/23 23:59 23:59 23:59 23:59 Intake Total 1749 / 1749 270 / 270 1620 / 1620 30 30 Output Total 2190 / 2190 1720 / 1720 5550 / 5550 1000 / 1000 Balance -441 / -441 -1450 / -1450 -3930 / -3930 -970 / -970 Physical Exam Oriented: Normal Eyes: Normal Nose: Normal Throat: Normal Respiratory: Generalized and Diminished Cardiovascular: Normal and Edema Auscultation: Bowel Sounds: Normal Tenderness: Normal Skin: Decreased Turgur Musculoskeletal: Normal Psychiatric: Normal Mood Description: Calm Affect: Normal Speech Pattern: Clear and Appropriate Laboratory and Diagnostics 06/12/23 05:23 06/12/23 05:23 Labs: 06/06/23 09:48 Blood Blood Culture - Final 06/06/23 09:35 Blood Blood Culture - Final 06/08/23 22:37 Urine,Clean Catch Urine Culture - Final Escherichia Coli Esbl 06/05/23 22:40 Urine,Clean Catch Urine Culture - Final Escherichia Coli Esbl Laboratory WBC 7.8 X10^3/uL (3.6-10.0) 06/12/23 05:23 RBC 2.77 X10^6/uL (4.7-6.0) L 06/12/23 05:23 Hgb 7.1 g/dL (13.5-18.0) L 06/12/23 05:23 Hct 21.6 % (42.0-54.0) L 06/12/23 05:23 MCV 78.1 fL (80.0-100.0) L 06/12/23 05:23 MCH 25.6 pg (27.0-34.0) L 06/12/23 05:23 MCHC 32.7 g/dL (33.0-35.0) L 06/12/23 05:23 RDW 17.4 % (11.6-16.5) H 06/12/23 05:23 Plt Count 211 X10^3/uL (150.0-450.0) 06/12/23 05:23 Plt Count Comment Adequate (ADEQUATE) 06/08/23 05:08 MPV 7.6 fL (7.4-11.0) 06/12/23 05:23 Neut % (Auto) 75.9 % (42.0-75.0) H 06/12/23 05:23 Lymph % (Auto) 8.3 % (21.0-51.0) L 06/12/23 05:23 [place] % (Auto) 11.2 % (0.0-13.0) 06/12/23 05:23 Eos % (Auto) 4.2 % (0.9-2.9) H 06/12/23 05:23 Baso % (Auto) 0.4 % (0.2-1.0) 06/12/23 05:23 Neut # (Auto) 5.9 x10^3/uL (2.2-4.8) H 06/12/23 05:23 Lymph # (Auto) 0.6 X10^3/uL (1.3-2.9) L 06/12/23 05:23 [place] # (Auto) 0.9 x10^3/uL (0.3-0.8) H 06/12/23 05:23 Eos # (Auto) 0.3 x10^3/uL (0.0-0.2) H 06/12/23 05:23 Baso # (Auto) 0.0 X10^3/uL (0.0-0.1) 06/12/23 05:23 Absolute Nucleated RBC 0.0 /100WBC 06/12/23 05:23 Total Counted 100 06/08/23 05:08 Neutrophils % (Manual) 85 % (39-76) H 06/08/23 05:08 Band Neutrophils % 5 % (0-10) 06/08/23 05:08 Lymphocytes % (Manual) 6 % (13-43) L 06/08/23 05:08 Monocytes % (Manual) 3 % (4-9) L 06/08/23 05:08 Metamyelocytes % 1 06/08/23 05:08 Smudge Cells Slight A 06/08/23 05:08 Plt Morphology Comment Normal (NORMAL) 06/08/23 05:08 RBC Morphology Abnormal (NORMAL) 06/08/23 05:08 Hypochromasia Slight A 06/08/23 05:08 Anisocytosis Slight A 06/08/23 05:08 Absolute Retic 0.0277 10^6/uL 06/07/23 05:35 Percent Retic 0.93 % (0.8-2.2) 06/07/23 05:35 Sample Site Lbra 06/07/23 12:22 ABG pH 7.230 (7.35-7.45) L 06/07/23 12:22 ABG pCO2 35.0 mmHg (35.0-45.0) 06/07/23 12:22 ABG pO2 72.0 mmHg (80.0-100.0) L 06/07/23 12:22 ABG HCO3 14.7 mmol/L (22-26) L* 06/07/23 12:22 ABG O2 Saturation 91.0 % (90-100) 06/07/23 12:22 ABG Base Excess -11.9 mmol/L (-2.0-2.0) L 06/07/23 12:22 Sarbjit Test N/a 06/07/23 12:22 A-a Gradient 34.0 mmHg 06/07/23 12:22 FiO2 21.0 06/07/23 12:22 Blood Gas Comments Pt ran well elj 06/07/23 12:22 Sodium 139 mmol/L (136-145) 06/12/23 05:23 Corrected Sodium TNP 06/12/23 05:23 Potassium 4.7 mmol/L (3.5-5.1) 06/12/23 05:23 Chloride 109 mmol/L (98-107) H 06/12/23 05:23 Carbon Dioxide 20.3 mmol/L (21-32) L 06/12/23 05:23 BUN 52 mg/dL (7-18) H 06/12/23 05:23 Creatinine 4.26 mg/dL (0.70-1.30) H 06/12/23 05:23 Est GFR (MDRD) Af Amer 17 (>60) L 06/12/23 05:23 Est GFR (MDRD) Non-Af 14 (>60) L 06/12/23 05:23 Glucose 103 mg/dL (65-99) H 06/12/23 05:23 POC Glucose (mg/dL) 123 mg/dL (65-99) H 06/12/23 10:40 Calcium 7.4 mg/dL (8.5-10.1) L 06/12/23 05:23 Corrected Calcium 9.2 mg/dL (8.5-10.1) 06/12/23 05:23 Magnesium 2.6 mg/dL (2.0-2.9) 06/08/23 05:08 Iron 11 ug/dL (50-175) L 06/07/23 05:35 TIBC 145 ug/dL (250-450) L 06/07/23 05:35 Transferrin 112 mg/dL (202-364) L 06/07/23 05:35 Ferritin 85 ng/mL (26-388) 06/07/23 05:35 Total Bilirubin 0.30 mg/dL (0.2-1.0) 06/12/23 05:23 AST 33 Units/L (15-37) 06/12/23 05:23 ALT 70 Units/L (12-78) 06/12/23 05:23 Alkaline Phosphatase 60 Units/L (46-116) 06/12/23 05:23 B-Natriuretic Peptide 482 pg/mL (0-79) H 06/09/23 05:32 Total Protein 5.1 g/dL (6.4-8.2) L 06/12/23 05:23 Albumin 1.7 g/dL (3.4-5.0) L 06/12/23 05:23 Globulin 3.4 g/dL (2.5-4.5) 06/12/23 05:23 Albumin/Globulin Ratio 0.5 Ratio (1.1-2.1) L 06/12/23 05:23 Vitamin B12 231 pg/mL (193-986) 06/07/23 05:35 Folate 8.6 ng/mL (>8.6) 06/07/23 05:35 Specimen Type Clean catch urine 06/07/23 13:32 Urine Color Pale yellow (YELLOW) 06/07/23 13:32 Urine Appearance Hazy (CLEAR) 06/07/23 13:32 Urine pH 5.0 (5.0 - 8.0) 06/07/23 13:32 Ur Specific [place] 1.020 (1.000-1.030) 06/07/23 13:32 Urine Protein 3+ (NEGATIVE) 06/07/23 13:32 Urine Glucose (UA) Negative (NEGATIVE) 06/07/23 13:32 Urine Ketones Negative (NEGATIVE) 06/07/23 13:32 Urine Blood 3+ (NEGATIVE) 06/07/23 13:32 Urine Nitrite Negative (NEGATIVE) 06/07/23 13:32 Urine Bilirubin Negative (NEGATIVE) 06/07/23 13:32 Urine Urobilinogen Normal (NORMAL) 06/07/23 13:32 Ur Leukocyte Esterase 3+ (NEGATIVE) 06/07/23 13:32 Urine RBC 5-10 /HPF (0-3) A 06/07/23 13:32 Urine WBC Tntc /HPF (0-5) A 06/07/23 13:32 Ur Squamous Epith Cells Rare /HPF (NEGATIVE) 06/07/23 13:32 Amorphous Sediment 1+ /HPF (NEGATIVE) 06/07/23 13:32 Urine Bacteria 1+ /HPF (NEGATIVE) 06/07/23 13:32 Granular Casts Few /LPF (NEGATIVE) 06/05/23 22:40 Urine Mucus Rare /HPF (NEGATIVE) 06/07/23 13:32 Ur Culture Indicated? No/not indicated 06/07/23 13:32 Ur Random Sodium 101 mmol/L (40-220) 06/09/23 14:53 Urine Creatinine 41.19 mg/dL (40-278) 06/09/23 14:53 Stl Occult Blood (IFOB) Positive (NEGATIVE) A 06/08/23 10:26 Resp Viral Panel (PCR) See scanned report 06/09/23 10:26 Blood Type O POSITIVE 06/12/23 09:35 Antibody Screen Negative 06/12/23 09:35 Crossmatch See Detail 06/12/23 09:35 Plan (1) Pleural effusion: Status: Acute (2) ESBL (extended spectrum beta-lactamase) producing bacteria infection: Status: Acute (3) C. difficile colitis: Status: Acute (4) Pneumonia: Status: Acute Qualifiers: Pneumonia type: due to unspecified organism Laterality: right Lung location: lower lobe of lung Qualified Code(s): J18.9 - Pneumonia, unspecified organism (5) Campylobacter diarrhea: Status: Acute (6) JAKE (acute kidney injury): Status: Acute (7) Acute dehydration: Status: Acute (8) Generalized weakness: Status: Acute (9) Anemia: Status: Acute Qualifiers: Anemia type: unspecified type Qualified Code(s): D64.9 - Anemia, unspecified (10) Streptococcal pneumonia: Status: Acute
[2023-06-12 17:01] LABS: HEMATOCRIT 24.5 % (42.0-54.0); HEMOGLOBIN 8.1 g/dL (13.5-18.0)
[2023-06-13 04:59] VITALS: RESP 20
[2023-06-13 06:01] LABS: BASOPHILS % (AUTO) 0.6 % (0.2-1.0); EOSINOPHILS # (AUTO) 0.3 x10^3/uL (0.0-0.2); HEMATOCRIT 23.8 % (42.0-54.0); HEMOGLOBIN 7.8 g/dL (13.5-18.0); LYMPHOCYTES # (AUTO) 0.6 X10^3/uL (1.3-2.9); LYMPHOCYTES % (AUTO) 9.4 % (21.0-51.0); MEAN CORPUSCULAR HEMOGLOBIN 26.1 pg (27.0-34.0); MEAN CORPUSCULAR HGB CONC 32.9 g/dL (33.0-35.0); MEAN CORPUSCULAR VOLUME 79.3 fL (80.0-100.0); MEAN PLATELET VOLUME 7.3 fL (7.4-11.0); MONOCYTES # (AUTO) 0.8 x10^3/uL (0.3-0.8); MONOCYTES % (AUTO) 12.2 % (0.0-13.0); NEUTROPHILS # (AUTO) 4.8 x10^3/uL (2.2-4.8); NEUTROPHILS % (AUTO) 72.8 % (42.0-75.0); PLATELET COUNT 217 X10^3/uL (150.0-450.0); RED CELL DISTRIBUTION WIDTH 17.5 % (11.6-16.5); WHITE BLOOD COUNT 6.6 X10^3/uL (3.6-10.0)
[2023-06-13 06:12] LABS: ALANINE AMINOTRANSFERASE 72 Units/L (12-78); ALBUMIN 1.6 g/dL (3.4-5.0); ALKALINE PHOSPHATASE 60 Units/L (46-116); ASPARTATE AMINO TRANSFERASE 41 Units/L (15-37); BLOOD UREA NITROGEN 49 mg/dL (7-18); CALCIUM 7.5 mg/dL (8.5-10.1); CARBON DIOXIDE 22.3 mmol/L (21-32); CHLORIDE 108 mmol/L (98-107); COR CA(FOR HYPOALB) 9.4 mg/dL (8.5-10.1); CREATININE 3.99 mg/dL (0.70-1.30); GLUCOSE 92 mg/dL (65-99); SODIUM 141 mmol/L (136-145); TOTAL PROTEIN 5.2 g/dL (6.4-8.2); eGFR NON BLACK RACES 15 (>60)
[2023-06-13 08:58] VITALS: BP 160/71; TEMP 98
--- NOTE | 2023-06-13 09:16 | W.DIS.FURT ---
Summary of Discharge Discharge Summary of Date Date of Exam: 06/13/23 Admission Date Date of Admission: 06/05/23 Admission Diagnosis Hospital Course: Patient is a 87 year old male admitted for ESBL UTI, C. diff and Campy colitis, JAKE and pneumonia. His hospital/treatment course included antibiotics Invanz for ESBL UTI, Vancomycin PO for C. diff, and azithromycin for campy. He also received lasix 40 mg IV BID. Pt did have ATN and his renal function gradually improve. Nephrotoxic agents held. Patient to work with PT at [facility]. He has completed azithromycin course and will need to complete Invanz x5 more days and Vancomycin x 3 more days course. Will change lasix to 40mg BID and repeat BMP in 5 days. Hold lisinopril and hctz. Rx hydralazine 25mg daily for hypertension. Referral to nephrology for continued renal function monitoring outpatient. Pt discharged in stable condition to [facility]. Vital Signs: Vital Signs (72 hours) 06/10/23 09:06 06/10/23 12:00 06/10/23 16:00 Temperature 97.8 F 97.7 F Pulse Rate 82 Pulse Rate [Left Brachial] 83 80 Respiratory Rate 20 18 Blood Pressure [Left Arm] Blood Pressure [Right Arm] 165/70 158/70 O2 Sat by Pulse Oximetry 97 96 97 Oxygen Delivery Method CPAP CPAP 06/10/23 20:15 06/10/23 20:15 06/10/23 20:00 Temperature 98.2 F Pulse Rate 76 Pulse Rate [Left Brachial] 92 H Respiratory Rate 20 Blood Pressure [Left Arm] Blood Pressure [Right Arm] 176/75 O2 Sat by Pulse Oximetry 95 94 L Oxygen Delivery Method Room Air Room Air 06/10/23 19:00 06/11/23 00:00 06/11/23 04:00 Temperature 98.7 F 98.7 F Pulse Rate Pulse Rate [Left Brachial] 89 88 Respiratory Rate 20 20 Blood Pressure [Left Arm] Blood Pressure [Right Arm] 170/69 153/67 O2 Sat by Pulse Oximetry 94 L 96 Oxygen Delivery Method CPAP CPAP CPAP 06/11/23 09:25 06/11/23 08:00 06/11/23 12:00 Temperature 97.9 F 97.6 F Pulse Rate Pulse Rate [Left Brachial] 78 86 Respiratory Rate 17 17 Blood Pressure [Left Arm] Blood Pressure [Right Arm] 178/75 162/72 O2 Sat by Pulse Oximetry 93 L 92 L Oxygen Delivery Method Room Air Room Air Room Air 06/11/23 16:00 06/11/23 07:00 06/11/23 20:00 Temperature 97.4 F L 98.1 F Pulse Rate Pulse Rate [Left Brachial] 81 84 Respiratory Rate 18 18 Blood Pressure [Left Arm] Blood Pressure [Right Arm] 178/72 180/76 O2 Sat by Pulse Oximetry 93 L 97 Oxygen Delivery Method Room Air Room Air Room Air 06/11/23 19:00 06/11/23 20:45 06/11/23 20:45 Temperature Pulse Rate 82 Pulse Rate [Left Brachial] Respiratory Rate Blood Pressure [Left Arm] Blood Pressure [Right Arm] O2 Sat by Pulse Oximetry 97 Oxygen Delivery Method Room Air Room Air 06/12/23 00:00 06/12/23 04:00 06/12/23 08:00 Temperature 98.5 F 98.2 F 97.4 F L Pulse Rate Pulse Rate [Left Brachial] 85 89 78 Respiratory Rate 20 20 18 Blood Pressure [Left Arm] 174/69 172/64 160/72 Blood Pressure [Right Arm] O2 Sat by Pulse Oximetry 97 97 94 L Oxygen Delivery Method CPAP CPAP CPAP 06/12/23 08:44 06/12/23 12:00 06/12/23 07:00 Temperature 97.2 F L Pulse Rate Pulse Rate [Left Brachial] 78 Respiratory Rate 19 Blood Pressure [Left Arm] 177/79 Blood Pressure [Right Arm] O2 Sat by Pulse Oximetry 95 Oxygen Delivery Method CPAP Room Air Room Air 06/12/23 15:53 06/12/23 19:00 06/12/23 20:00 Temperature 97.5 F L 97.7 F Pulse Rate Pulse Rate [Left Brachial] 78 85 Respiratory Rate 18 20 Blood Pressure [Left Arm] 159/70 147/65 Blood Pressure [Right Arm] O2 Sat by Pulse Oximetry 94 L 96 Oxygen Delivery Method Room Air Room Air Room Air 06/12/23 21:20 06/12/23 21:20 06/13/23 00:00 Temperature 98.4 F Pulse Rate 79 Pulse Rate [Left Brachial] 84 Respiratory Rate 18 Blood Pressure [Left Arm] 171/78 Blood Pressure [Right Arm] O2 Sat by Pulse Oximetry 97 94 L Oxygen Delivery Method Room Air CPAP 06/13/23 04:00 06/13/23 08:55 06/13/23 08:00 Temperature 98.2 F 98 F Pulse Rate Pulse Rate [Left Brachial] 73 72 Respiratory Rate 20 20 Blood Pressure [Left Arm] 167/71 Blood Pressure [Right Arm] 160/71 O2 Sat by Pulse Oximetry 96 95 Oxygen Delivery Method CPAP Room Air Nasal Cannula Labs: Laboratory Last Values WBC 6.6 X10^3/uL (3.6-10.0) 06/13/23 05:15 RBC 3.00 X10^6/uL (4.7-6.0) L 06/13/23 05:15 Hgb 7.8 g/dL (13.5-18.0) L 06/13/23 05:15 Hct 23.8 % (42.0-54.0) L 06/13/23 05:15 MCV 79.3 fL (80.0-100.0) L 06/13/23 05:15 MCH 26.1 pg (27.0-34.0) L 06/13/23 05:15 MCHC 32.9 g/dL (33.0-35.0) L 06/13/23 05:15 RDW 17.5 % (11.6-16.5) H 06/13/23 05:15 Plt Count 217 X10^3/uL (150.0-450.0) 06/13/23 05:15 Plt Count Comment Adequate (ADEQUATE) 06/08/23 05:08 MPV 7.3 fL (7.4-11.0) L 06/13/23 05:15 Neut % (Auto) 72.8 % (42.0-75.0) 06/13/23 05:15 Lymph % (Auto) 9.4 % (21.0-51.0) L 06/13/23 05:15 [place] % (Auto) 12.2 % (0.0-13.0) 06/13/23 05:15 Eos % (Auto) 5.0 % (0.9-2.9) H 06/13/23 05:15 Baso % (Auto) 0.6 % (0.2-1.0) 06/13/23 05:15 Neut # (Auto) 4.8 x10^3/uL (2.2-4.8) 06/13/23 05:15 Lymph # (Auto) 0.6 X10^3/uL (1.3-2.9) L 06/13/23 05:15 [place] # (Auto) 0.8 x10^3/uL (0.3-0.8) 06/13/23 05:15 Eos # (Auto) 0.3 x10^3/uL (0.0-0.2) H 06/13/23 05:15 Baso # (Auto) 0.0 X10^3/uL (0.0-0.1) 06/13/23 05:15 Absolute Nucleated RBC 0.0 /100WBC 06/13/23 05:15 Total Counted 100 06/08/23 05:08 Neutrophils % (Manual) 85 % (39-76) H 06/08/23 05:08 Band Neutrophils % 5 % (0-10) 06/08/23 05:08 Lymphocytes % (Manual) 6 % (13-43) L 06/08/23 05:08 Monocytes % (Manual) 3 % (4-9) L 06/08/23 05:08 Metamyelocytes % 1 06/08/23 05:08 Smudge Cells Slight A 06/08/23 05:08 Plt Morphology Comment Normal (NORMAL) 06/08/23 05:08 RBC Morphology Abnormal (NORMAL) 06/08/23 05:08 Hypochromasia Slight A 06/08/23 05:08 Anisocytosis Slight A 06/08/23 05:08 Absolute Retic 0.0277 10^6/uL 06/07/23 05:35 Percent Retic 0.93 % (0.8-2.2) 06/07/23 05:35 Sample Site Lbra 06/07/23 12:22 ABG pH 7.230 (7.35-7.45) L 06/07/23 12:22 ABG pCO2 35.0 mmHg (35.0-45.0) 06/07/23 12:22 ABG pO2 72.0 mmHg (80.0-100.0) L 06/07/23 12:22 ABG HCO3 14.7 mmol/L (22-26) L* 06/07/23 12:22 ABG O2 Saturation 91.0 % (90-100) 06/07/23 12:22 ABG Base Excess -11.9 mmol/L (-2.0-2.0) L 06/07/23 12:22 Sarbjit Test N/a 06/07/23 12:22 A-a Gradient 34.0 mmHg 06/07/23 12:22 FiO2 21.0 06/07/23 12:22 Blood Gas Comments Pt ran well elj 06/07/23 12:22 Sodium 141 mmol/L (136-145) 06/13/23 05:15 Corrected Sodium TNP 06/13/23 05:15 Potassium 5.0 mmol/L (3.5-5.1) 06/13/23 05:15 Chloride 108 mmol/L (98-107) H 06/13/23 05:15 Carbon Dioxide 22.3 mmol/L (21-32) 06/13/23 05:15 BUN 49 mg/dL (7-18) H 06/13/23 05:15 Creatinine 3.99 mg/dL (0.70-1.30) H 06/13/23 05:15 Est GFR (MDRD) Af Amer 18 (>60) L 06/13/23 05:15 Est GFR (MDRD) Non-Af 15 (>60) L 06/13/23 05:15 Glucose 92 mg/dL (65-99) 06/13/23 05:15 POC Glucose (mg/dL) 91 mg/dL (65-99) 06/13/23 06:06 Calcium 7.5 mg/dL (8.5-10.1) L 06/13/23 05:15 Corrected Calcium 9.4 mg/dL (8.5-10.1) 06/13/23 05:15 Magnesium 2.6 mg/dL (2.0-2.9) 06/08/23 05:08 Iron 11 ug/dL (50-175) L 06/07/23 05:35 TIBC 145 ug/dL (250-450) L 06/07/23 05:35 Transferrin 112 mg/dL (202-364) L 06/07/23 05:35 Ferritin 85 ng/mL (26-388) 06/07/23 05:35 Total Bilirubin 0.40 mg/dL (0.2-1.0) 06/13/23 05:15 AST 41 Units/L (15-37) H 06/13/23 05:15 ALT 72 Units/L (12-78) 06/13/23 05:15 Alkaline Phosphatase 60 Units/L (46-116) 06/13/23 05:15 B-Natriuretic Peptide 482 pg/mL (0-79) H 06/09/23 05:32 Total Protein 5.2 g/dL (6.4-8.2) L 06/13/23 05:15 Albumin 1.6 g/dL (3.4-5.0) L 06/13/23 05:15 Globulin 3.6 g/dL (2.5-4.5) 06/13/23 05:15 Albumin/Globulin Ratio 0.4 Ratio (1.1-2.1) L 06/13/23 05:15 Vitamin B12 231 pg/mL (193-986) 06/07/23 05:35 Folate 8.6 ng/mL (>8.6) 06/07/23 05:35 Specimen Type Clean catch urine 06/07/23 13:32 Urine Color Pale yellow (YELLOW) 06/07/23 13:32 Urine Appearance Hazy (CLEAR) 06/07/23 13:32 Urine pH 5.0 (5.0 - 8.0) 06/07/23 13:32 Ur Specific [place] 1.020 (1.000-1.030) 06/07/23 13:32 Urine Protein 3+ (NEGATIVE) 06/07/23 13:32 Urine Glucose (UA) Negative (NEGATIVE) 06/07/23 13:32 Urine Ketones Negative (NEGATIVE) 06/07/23 13:32 Urine Blood 3+ (NEGATIVE) 06/07/23 13:32 Urine Nitrite Negative (NEGATIVE) 06/07/23 13:32 Urine Bilirubin Negative (NEGATIVE) 06/07/23 13:32 Urine Urobilinogen Normal (NORMAL) 06/07/23 13:32 Ur Leukocyte Esterase 3+ (NEGATIVE) 06/07/23 13:32 Urine RBC 5-10 /HPF (0-3) A 06/07/23 13:32 Urine WBC Tntc /HPF (0-5) A 06/07/23 13:32 Ur Squamous Epith Cells Rare /HPF (NEGATIVE) 06/07/23 13:32 Amorphous Sediment 1+ /HPF (NEGATIVE) 06/07/23 13:32 Urine Bacteria 1+ /HPF (NEGATIVE) 06/07/23 13:32 Granular Casts Few /LPF (NEGATIVE) 06/05/23 22:40 Urine Mucus Rare /HPF (NEGATIVE) 06/07/23 13:32 Ur Culture Indicated? No/not indicated 06/07/23 13:32 Ur Random Sodium 101 mmol/L (40-220) 06/09/23 14:53 Urine Creatinine 41.19 mg/dL (40-278) 06/09/23 14:53 Stl Occult Blood (IFOB) Positive (NEGATIVE) A 06/08/23 10:26 Resp Viral Panel (PCR) See scanned report 06/09/23 10:26 Blood Type O POSITIVE 06/12/23 09:35 Antibody Screen Negative 06/12/23 09:35 Crossmatch See Detail 06/12/23 09:35 Reason For Visit: CAMPY, C-DIFF, ARF, LEUKOCYTOSIS< PNEUMONIA Discharge Date Discharge Date: 06/13/23 Discharge Diagnosis All Active Problems (Updated 06/12/23 @ 13:54 by Dedrick Newberry) Streptococcal pneumonia (Acute) Pleural effusion (Acute) Pneumonia (Acute) Hyperkalemia (Acute) ESBL (extended spectrum beta-lactamase) producing bacteria infection (Acute) Anemia (Acute) Generalized weakness (Acute) Acute dehydration (Acute) JAKE (acute kidney injury) (Acute) Campylobacter diarrhea (Acute) C. difficile colitis (Acute) Chest pain (Acute) Chest pain, rule out acute myocardial infarction (Acute) Exertional dyspnea (Acute) Diabetes (Acute) Diverticulitis large intestine (Acute) Hydronephrosis of left kidney (Acute) Chronic renal insufficiency (Acute) Benign prostatic hyperplasia (Acute) Acute left flank pain (Acute) Allergic rhinitis (Acute) Rhinovirus (Acute) Plan of Treatment: Continue with present treatment and follow up plan. Pt is to keep follow up appointment as instructed and take medications as ordered. Discharge Medications Discharge Medications: No Known Drug Allergies Allergy (Verified 10/16/17 07:56) CONTINUE taking the following medications Lactobacillus rhamnosus GG 10 billion cell-inulin 200 mg capsule ([employer]) 1 cap PO DAILY 06/05/23 [History] New Prescriptions ertapenem 1 gram solution for injection 0.5 g IV QDAY 5 days #5 ea 06/13/23 [Rx] furosemide 40 mg tablet (Lasix) 40 mg PO BID #60 tabs 06/13/23 [Rx] hydralazine 25 mg tablet 25 mg PO DAILY 30 days #30 tabs 06/13/23 [Rx] vancomycin 250 mg capsule 250 mg PO QID 06/13/23 [Rx] Discharge Plan Discharge Plan Hospital Course: Patient is a 87 year old male admitted for ESBL UTI, C. diff and Campy colitis, JAKE and pneumonia. His hospital/treatment course included antibiotics Invanz for ESBL UTI, Vancomycin PO for C. diff, and azithromycin for campy. He also received lasix 40 mg IV BID. Pt did have ATN and his renal function gradually improve. Nephrotoxic agents held. Patient to work with PT at [facility]. He has completed azithromycin course and will need to complete Invanz x5 more days and Vancomycin x 3 more days course. Will change lasix to 40mg BID and repeat BMP in 5 days. Hold lisinopril and hctz. Rx hydralazine 25mg daily for hypertension. Referral to nephrology for continued renal function monitoring outpatient. Pt discharged in stable condition to SNF. Patient Disposition: 01 HOME, SELF-CARE Condition: Stable Health Concerns: Post Hospitalization: new medications and changes needed to prevent readmission or further decline. Pt educated and given instructions on all concerns. Plan of Treatment: Continue with present treatment and follow up plan. Pt is to keep follow up appointment as instructed and take medications as ordered. Prescriptions: New vancomycin 250 mg Capsule 250 mg PO QID 0RF Rx Instructions: Last dose to be taken at 2100 on 06/14/23 ertapenem 1 gram Recon Soln 0.5 g IV QDAY 5 Days Qty: 5 0RF hydralazine 25 mg Tablet 25 mg PO DAILY 30 Days Qty: 30 0RF furosemide [Lasix] 40 mg Tablet 40 mg PO BID Qty: 60 0RF Continued aspirin 325 mg tablet,delayed release (DR/EC) 325 mg PO QDAY pantoprazole 40 mg tablet,delayed release (DR/EC) 40 mg PO QDAY rosuvastatin 20 mg tablet 20 mg PO QPM tamsulosin 0.4 mg capsule 0.4 mg PO QPM fluticasone propionate [24 Hour Allergy Relief] 50 mcg/actuation spray,suspension 2 spray intranasal QDAY MDD 4 SPRAYS Qty: 16 0RF Rx Instructions: administer into each nostril [facility] [facility] 10 billion cell -200 mg Capsule 1 cap PO DAILY Discontinued lisinopril-hydrochlorothiazide 20-12.5 mg Tablet 1 tab PO QDAY Follow ups/Referrals Follow ups/Referrals: Blaine Holloway [Primary Care Provider] - 1 WEEK Instructions Activity Restrictions/Additional Instructions: Check BMP on 06/18/23 Nephrology Referral Stand Alone Forms: Post Hospital Follow Up Care
[2023-06-13 09:45] VITALS: PULSE 79; O2SAT 97
== END 2023-06-13 10:50 | DRG 371 ==
LOC: MED/SURG → OBS 06-06 11:57 → MED/SURG 06-06 11:58
PROVIDERS: ADMIT Internal Medicine; ATTEND Internal Medicine